=== PATIENT | female | born 1980 | race Caucasian/White ===

== ENCOUNTER 2019-05-25 22:02 | Inpatient (IN) | payer MEDICAID ==
[~2019-05-25] VITALS: Ht 144.8 cm; Wt 85.0 kg
[~2019-05-25 22:02] MED LIST: HYDR-3601 PO; IBUP-1545 PO; METF500T3 PO; PERCOCET PO; PREN-93 PO; PREN1TAB62 PO
[2019-05-26] VITALS (33 sets, daily range): BP systolic 71–128; BP diastolic 39–62; PULSE 68–114; RESP 16–25; Ht 144.8 cm; Wt 85.0 kg
[2019-05-26] MEDS ORDERED: ACETAMINOPHEN 325 MG TAB PO STA (02:23)
[2019-05-26] MEDS ORDERED: CEFTRIAXONE 1 GM/50 ML (PMX) 50 ML IVPB STA (02:23)
[2019-05-26] MEDS ORDERED: ONDANSETRON 4 MG INJ IV STA (02:23)
[2019-05-26] MEDS ORDERED: SODIUM CHLORIDE 0.9% 1L BAG IV* STA (02:23)
[2019-05-26] MEDS ORDERED: morphine 4 MG/ML VIAL IV STA (02:23)
--- NOTE | 2019-05-26 02:50 | ERD ---
ER Documentation Chief Complaint Chief Complaint ABD PAIN XLAST NIGHT; NO OTHER S/S HPI 39-year-old female presenting with generalized abdominal pain. The pain started in her epigastrium yesterday and is now radiating down into her pelvis and to bilateral upper and lower back. Pain is aching, cramping, constant, 9 out of 10, worsened by movement. She has associated fever, chills, and dysuria. No nausea, vomiting, diarrhea, constipation. No abnormal vaginal discharge. Currently on her menstrual period. ROS All systems reviewed and are negative except as per history of present illness. Medications Home Meds Reported Medications Ibuprofen* (Ibuprofen*) 800 Mg Tab, 800 MG PO Q6H PRN for PAIN, TAB 05/26/19 Vit No.124/Iron/FA ( Vitamin Tablet) 1 Each Tablet, 1 EACH PO DAILY, TAB 05/26/19 Discontinued Reported Medications Vit-Iron Fumarate-FA ( Vitamin Tablet) 1 Each Tablet, 1 TAB PO DAILY, TAB 06/15/15 Discontinued Scripts Oxycodone Hcl/Acetaminophen (Percocet) 1 Tab Tab, 2 TAB PO Q4H PRN for PAIN LEVEL 6-10, #30 TAB 0 Refills Prov:JUANCARLOS WALKER MD 06/17/15 Metformin* (Glucophage* XR) 500 Mg Tabsr, 500 MG PO BID, #120 6 Refills Prov:JUANCARLOS WALKER MD 06/17/15 Allergies Allergies: Coded Allergies: No Known Allergy (Unverified , 05/26/19) PMhx/Soc History of Surgery: Yes () Anesthesia Reaction: No Hx Miscellaneous Medical Probl: Yes (DIABETES) Hx Alcohol Use: No Hx Substance Use: No Hx Tobacco Use: No FmHx Family History: No diabetes Physical Exam Vitals Vital Signs Date Temp Pulse Resp B/P (MAP) Pulse Ox O2 O2 Flow FiO2 Time Delivery Rate 05/26/19 99.8 91 23 101/60 99 Nasal 2.0 05:39 (74) Cannula 05/26/19 96 25 84/45 (58) 95 Room Air 04:30 05/26/19 114 34 93/32 (52) 86 Room Air 03:30 05/26/19 113 31 105/58 97 Room Air 03:02 (74) 05/26/19 100.5 02:57 05/26/19 100.5 109 30 120/89 100 Room Air 02:30 (99) 05/25/19 99.1 82 19 126/87 99 22:18 (100) Physical Exam Const: No acute distress, nontoxic Head: Atraumatic Eyes: Normal Conjunctiva ENT: Normal External Ears, Nose and Mouth. Neck: Full range of motion. No meningismus. Resp: Clear to auscultation bilaterally Cardio: Tachycardic with regular rhythm, no murmurs Abd: Soft, diffuse tenderness in all 4 quadrants with no rebound or guarding, non distended. Normal bowel sounds Skin: No petechiae or rashes Back: No midline or flank tenderness Ext: No cyanosis, or edema Neur: Awake and alert Psych: Normal Mood and Affect Result Diagram: 05/26/19 0230 05/26/19 0230 Results 24 hrs Laboratory Tests Test 05/26/19 02:30 05/26/19 02:31 05/26/19 04:30 White Blood Count 9.5 10^3/ul Red Blood Count 4.91 10^6/ul Hemoglobin 14.2 g/dl Hematocrit 43.0 % Mean Corpuscular Volume 87.6 fl Mean Corpuscular Hemoglobin 28.9 pg Mean Corpuscular 33.0 g/dl Hemoglobin Concent Red Cell Distribution Width 12.5 % Platelet Count 216 10^3/UL Mean Platelet Volume 10.5 fl Immature Granulocytes % 0.300 % Neutrophils % 87.3 % Lymphocytes % 7.9 % Monocytes % 4.1 % Eosinophils % 0.1 % Basophils % 0.3 % Nucleated Red Blood Cells % 0.0 /100WBC Immature Granulocytes # 0.030 10^3/ul Neutrophils # 8.3 10^3/ul Lymphocytes # 0.8 10^3/ul Monocytes # 0.4 10^3/ul Eosinophils # 0.0 10^3/ul Basophils # 0.0 10^3/ul Nucleated Red Blood Cells # 0.0 10^3/ul Prothrombin Time 14.0 Sec Prothrombin Time Ratio 1.1 INR International 1.07 Normalized Ratio Activated Partial Thromboplast 32.5 Sec Time Urine Color YELLOW Urine Clarity SLIGHTLY CLOUDY Urine pH 5.0 Urine Specific [place] 1.015 Urine Ketones 2+ mg/dL Urine Nitrite NEGATIVE mg/dL Urine Bilirubin NEGATIVE mg/dL Urine Urobilinogen NEGATIVE mg/dL Urine Leukocyte Esterase NEGATIVE [place] Urine Microscopic RBC 2 /HPF Urine Microscopic WBC 5 /HPF Urine Squamous Epithelial Cells FEW /HPF Urine Bacteria FEW /HPF Urine Hemoglobin 3+ mg/dL Urine Glucose NEGATIVE mg/dL Urine Total Protein NEGATIVE mg/dl Urine Test NEGATIVE Sodium Level 136 mmol/L Potassium Level 3.9 mmol/L Chloride Level 100 mmol/L Carbon Dioxide Level 20 mmol/L Anion Gap 16 Blood Urea Nitrogen 17 mg/dl Creatinine 0.83 mg/dl Est Glomerular Filtrat > 60 mL/min Rate mL/min Glucose Level 127 mg/dl Calcium Level 9.1 mg/dl Total Bilirubin 1.4 mg/dl Direct Bilirubin 0.00 mg/dl Indirect Bilirubin 1.4 mg/dl Aspartate Amino Transf (AST/SGOT) 71 IU/L Alanine 37 IU/L Aminotransferase (ALT/SGPT) Alkaline Phosphatase 85 IU/L Total Protein 8.7 g/dl Albumin 4.6 g/dl Globulin 4.10 g/dl Albumin/Globulin Ratio 1.12 Lipase 35 U/L POC Venous Lactate 1.7 mmol/L Lactic Acid Level 1.1 mmol/L Current Medications Medications Dose Sig/Enedina Start Time Status Last (Trade) Ordered Route PRN Stop Time Admin Dose Reason Admin 650 mg ONCE STAT 05/26/19 DC 05/26/19 Acetaminophen PO 02:23 02:57 (Tylenol 05/26/19 02:27 Tab) Morphine 4 mg ONCE STAT 05/26/19 DC 05/26/19 Sulfate IV 02:23 02:57 (morphine) 05/26/19 02:27 Ondansetron 4 mg ONCE STAT 05/26/19 DC 05/26/19 HCl (Zofran IV 02:23 02:57 Inj) 05/26/19 02:27 Sodium 1,370 ml BOLUS OVER 2 05/26/19 DC 05/26/19 Chloride HOURS STAT 02:23 02:56 (NS) IV* 05/26/19 02:27 Ceftriaxone 50 ml @ ONCE STAT 05/26/19 DC 05/26/19 Sodium 100 mls/hr IVPB 02:23 02:58 05/26/19 02:52 100 ml @ ONCE ONCE 05/26/19 Metronidazole 100 mls/hr IVPB 06:30 05/26/19 07:29 Ondansetron 4 mg BRIDGE ORDER 05/26/19 HCl (Zofran PRN IV 06:30 Inj) NAUSEA/VOMITI 05/27/19 06:29 NG 650 mg ER BRIDGE 05/26/19 Acetaminophen PRN PO 06:30 (Tylenol .MILD PAIN 05/27/19 06:29 Tab) 1-3 OR TEMP Piperacillin 100 ml @ Q6 IVPB 05/26/19 DC Sod/ 200 mls/hr 06:30 Tazobactam 05/26/19 06:30 Sod Sodium 1,000 ml @ [id number] IV 05/26/19 Chloride 80 mls/hr 06:26 IV Flush 3 ml PER 05/26/19 (NS 3 ml) PROTOCOL IV 06:30 Ondansetron 4 mg Q6H PRN 05/26/19 HCl (Zofran IV 06:30 Inj) NAUSEA/VOMITI NG 650 mg Q6H PRN 05/26/19 Acetaminophen PO .PAIN 1-3 06:30 (Tylenol OR TEMP Tab) Morphine 2 mg Q4H PRN 05/26/19 Sulfate IV .SEVERE 06:30 (morphine) PAIN 7-10 Docusate 100 mg Q12H PRN 05/26/19 Sodium PO 06:30 (Colace) .CONSTIPATION Bisacodyl 5 mg DAILY PRN 05/26/19 (Dulcolax) PO 06:30 .CONSTIPATION Piperacillin 100 ml @ Q6 IVPB 05/26/19 Sod/ 200 mls/hr 12:00 Tazobactam Sod Procedures/MDM EMERGENT LABS AND DIAGNOSTIC STUDIES: Lab Results above were reviewed and interpreted by me. CBC: no anemia or evidence of infection CMP: Slight bili elevation. No evidence of clinically significant electrolyte abnormality, acidosis, renal failure, hypoglycemia, liver disease Lipase: no evidence of pancreatitis Lactate within normal limits without evidence of sepsis or tissue hypoperfusion UA: no evidence of infection 12-lead EKG was interpreted by Gracie Maldonado MD: Sinus tachycardia with ventricular rate of 107 beats per minute Normal axis Normal intervals No acute ST or T wave changes suggestive of acute ischemia or STEMI. Radiology Results as interpreted by Radiology below were reviewed by Sally Maldonado MD: CT abdomen and pelvis shows evidence of appendicitis without perforation Initial Nursing notes reviewed. Previous Medical Records requested via the Electronic Health Record. EMERGENCY DEPARTMENT COURSE / MEDICAL DECISION MAKING: Patient is presenting with diffuse abdominal pain, mostly in the lower abdomen. She did have associated fever. Sepsis work-up done. No evidence of severe sepsis or septic shock. CT was done showing evidence of acute appendicitis. Patient was treated with broad-spectrum antibiotics and IV fluids. She will be admitted for further management. Accepting Care Team: Current data and ongoing care discussed. Time: Time of admission Primary Provider: Dr. Castaneda Consulting: Dr. Jackson with surgery Outstanding Data: none Departure Diagnosis: Primary Impression: Acute appendicitis Acute appendicitis type: with generalized peritonitis Appendicitis gangrene presence: without gangrene Appendicitis perforation presence: unspecified whether perforation present Appendicitis abscess presence: unspecified whether abscess present Qualified Codes: K35.20 - Acute appendicitis with generalized peritonitis, without abscess Additional Impression: Sepsis Sepsis type: sepsis due to unspecified organism Qualified Codes: A41.9 - Sepsis, unspecified organism Condition: Serious AIDEN MALDONADO MD May 26, 2019 02:50
[2019-05-26] MEDS ORDERED: BISACODYL (EC) 5 MG TAB PO PRN (06:30)
[2019-05-26] MEDS ORDERED: PIPER-TAZO 3.375 GM IV (PMX) 100 ML IVPB SCH (06:30)
[2019-05-26] MEDS ORDERED: DOCUSATE SODIUM 100 MG CAP PO PRN (06:30)
[2019-05-26] MEDS ORDERED: metroNIDAZOLE 500 MG/NS (PMX) 100 ML IVPB ONE (06:30)
[2019-05-26] MEDS ORDERED: ONDANSETRON 4 MG INJ IV PRN ×3 (06:30→17:30)
[2019-05-26] MEDS ORDERED: NACL 0.9% 3 ML SYG IV SCH (06:30)
[2019-05-26] MEDS ORDERED: ACETAMINOPHEN 325 MG TAB PO PRN ×2 (06:30)
[2019-05-26] MEDS: SOD CHLORIDE 0.9% 1,000 ML IV SCH ×2 (06:50→17:24)
--- NOTE | 2019-05-26 07:22 | HP ---
Date/Time of Note Date/Time of Note DATE: 05/26/19 TIME: 07:19 Assessment/Plan VTE Prophylaxis SCD applied (from Nsg): Yes Pharmacological prophylaxis: NA/contraindicated Pharm contraindication: low risk/ambulating Lines/Catheters IV Catheter Type (from Nrsg): Saline Lock Assessment/Plan Hospital Course This is a 39-year-old female being admitted to the [facility] floor for: #1 sepsis: Secondary to acute appendicitis. Lactic acid within normal values. Continue Zosyn. Trend lactic acid levels. Await culture results. #2 acute appendicitis: CT confirming acute appendicitis. Continue Zosyn IV every 6 hours. We will keep the patient n.p.o. except meds. IV fluid hydration with normal saline pain management. Dr. Jackson of general surgery has already been consulted by the ED #3 metabolic acidosis: secondary to sepsis, acute appendicitis. fluids, abx. monitor #4 obesity: We will check hemoglobin C, lipid panel, TSH #5 DVT GI prophylaxis: SCDs, no GI prophylaxis indicated Further treatment strategy will be implemented as per the clinical course Result Diagram: 05/26/19 0230 05/26/19 0230 Results 24hrs Laboratory Tests Test 05/26/19 02:30 05/26/19 02:31 05/26/19 04:30 White Blood Count 9.5 # Red Blood Count 4.91 # Hemoglobin 14.2 # Hematocrit 43.0 Mean Corpuscular Volume 87.6 Mean Corpuscular Hemoglobin 28.9 L Mean Corpuscular 33.0 Hemoglobin Concent Red Cell Distribution Width 12.5 Platelet Count 216 Mean Platelet Volume 10.5 H Immature Granulocytes % 0.300 Neutrophils % 87.3 H Lymphocytes % 7.9 L Monocytes % 4.1 Eosinophils % 0.1 Basophils % 0.3 Nucleated Red Blood Cells % 0.0 Immature Granulocytes # 0.030 Neutrophils # 8.3 H Lymphocytes # 0.8 Monocytes # 0.4 Eosinophils # 0.0 Basophils # 0.0 Nucleated Red Blood Cells # 0.0 Prothrombin Time 14.0 Prothrombin Time Ratio 1.1 INR International 1.07 Normalized Ratio Activated Partial Thromboplast 32.5 Time Urine Color YELLOW Urine Clarity SLIGHTLY CLOUDY A Urine pH 5.0 Urine Specific [place] 1.015 Urine Ketones 2+ H Urine Nitrite NEGATIVE Urine Bilirubin NEGATIVE Urine Urobilinogen NEGATIVE Urine Leukocyte Esterase NEGATIVE Urine Microscopic RBC 2 Urine Microscopic WBC 5 Urine Squamous FEW Epithelial Cells Urine Bacteria FEW A Urine Hemoglobin 3+ H Urine Glucose NEGATIVE Urine Total Protein NEGATIVE Urine Test NEGATIVE Sodium Level 136 Potassium Level 3.9 Chloride Level 100 Carbon Dioxide Level 20 L Anion Gap 16 H Blood Urea Nitrogen 17 Creatinine 0.83 Est Glomerular Filtrat > 60 Rate mL/min Glucose Level 127 Calcium Level 9.1 Total Bilirubin 1.4 H Direct Bilirubin 0.00 Indirect Bilirubin 1.4 H Aspartate Amino 71 H Transf (AST/SGOT) Alanine 37 Aminotransferase (ALT/SGPT) Alkaline Phosphatase 85 Total Protein 8.7 H Albumin 4.6 Globulin 4.10 H Albumin/Globulin Ratio 1.12 Lipase 35 POC Venous Lactate 1.7 Lactic Acid Level 1.1 HPI/ROS Admit Date/Time Admit Date/Time Hx of Present Illness Complaint: Abdominal pain x2 days This is a 39-year-old female with with a history of hyperlipidemia who presents with abdominal pain x2 days. She states that the pain started in her epigastric area and then went down to her lower abdomen. She describes the pain as constant and aching and 9 out of 10. It is worse with movement. She does report fevers and chills. She denies any nausea vomiting or diarrhea. She is currently on her menstrual cycle. Allergies: NKDA Medications: None ROS Const: As per HPI Eyes : No pain discharge or redness or change in visual acuity ENT: No pain, sore throat, congestion, congestion, dysphagia or discharge Respiratory: No shortness of breath, cough, sputum, wheezing, or pleuritic pain Cardiovascular: No chest pain, palpitation, PND, or edema GI : As per HPI Genitourinary: No dysuria, hematuria, flank pain , discharge or CVA tenderness Musculoskeletal: No joint pain, back pain, neck pain, restricted range of motion in neck or joints Skin: No rash, bruising or hives Neuro: No headache, dizziness, syncope, seizure, focal weakness Endocrine: No polyuria, polydipsia, temperature intolerance Psych: No hallucination, depression, anxiety or suicidal ideation PMH/Family/Social Past Medical History Hyperlipidemia Medications Current Medications Metronidazole 100 ml @ 100 mls/hr ONCE ONCE IVPB Last administered on 05/26/19at 06:50; Admin Dose 100 MLS/HR; Start 05/26/19 at 06:30; Stop 05/26/19 at 07:29 Ondansetron HCl (Zofran Inj) 4 mg BRIDGE ORDER PRN IV NAUSEA/VOMITING; Start 05/26/19 at 06:30; Stop 05/27/19 at 06:29 Acetaminophen (Tylenol Tab) 650 mg ER BRIDGE PRN PO .MILD PAIN 1-3 OR TEMP; Start 05/26/19 at 06:30; Stop 05/27/19 at 06:29 Sodium Chloride 1,000 ml @ 80 mls/hr [id number] IV Last administered on 05/26/19at 06:50; Admin Dose 80 MLS/HR; Start 05/26/19 at 06:26 IV Flush (NS 3 ml) 3 ml PER PROTOCOL IV ; Start 05/26/19 at 06:30 Ondansetron HCl (Zofran Inj) 4 mg Q6H PRN IV NAUSEA/VOMITING; Start 05/26/19 at 06:30 Acetaminophen (Tylenol Tab) 650 mg Q6H PRN PO .PAIN 1-3 OR TEMP; Start 05/26/19 at 06:30 Morphine Sulfate (morphine) 2 mg Q4H PRN IV .SEVERE PAIN 7-10; Start 05/26/19 at 06:30 Docusate Sodium (Colace) 100 mg Q12H PRN PO .CONSTIPATION; Start 05/26/19 at 06:30 Bisacodyl (Dulcolax) 5 mg DAILY PRN PO .CONSTIPATION; Start 05/26/19 at 06:30 Piperacillin Sod/ Tazobactam Sod 100 ml @ 200 mls/hr Q6 IVPB ; Start 05/26/19 at 12:00 Coded Allergies: No Known Allergy (Unverified , 05/26/19) Past Surgical History section x1 Family History Significant Family History: no pertinent family hx Social History Alcohol Use: none Smoking Status: Never smoker Drug Use: none Exam/Review of Systems Vital Signs Vitals Vital Signs Date Temp Pulse Resp B/P (MAP) Pulse Ox O2 O2 Flow FiO2 Time Delivery Rate 05/26/19 78 20 99/61 (74) 100 Nasal 2.0 06:30 Cannula 05/26/19 99.8 05:39 Exam Exam General: Patient is currently lying in bed in mild distress from pain HEENT: Atraumatic, normocephalic. The pupils are equal, round and reactive. Extraocular motor are intact Neck: Supple with full range of motion. No rigidity or meningismus Chest: Nontender Lungs: Clear to auscultation bilaterally no crackles rales or wheezing Heart: Normal S1-S2, Regular rhythm and rate. No murmur, S3, or S4 Abdomen: Obese, soft pinpoint tenderness to palpation at the right lower quadrant and referred pain on the left lower quadrant, nondistended , bowel sounds are present. No guarding no rebound tenderness , No masses or organomegaly. No costovertebral temporal angle mass Extremities: Normal to inspection, no edema no cyanosis Neurologic: Normal mental status, speech normal, cranial nerves II through XII are intact, motor and sensory are intact, GEO SANCHEZ May 26, 2019 07:22
[2019-05-26] MEDS: morphine 2 MG INJ IV PRN ×3 (08:29→23:01)
--- NOTE | 2019-05-26 10:03 | PN ---
Date/Time of Note Date/Time of Note DATE: 05/26/19 TIME: 10:03 Assessment/Plan VTE Prophylaxis Pharmacological prophylaxis: NA/contraindicated Pharm contraindication: low risk/ambulating Lines/Catheters IV [facility] Saline Lock Assessment/Plan Hospital Course SUBJECTIVE: Continues to have abdominal pain. OBJECTIVE: Physical Exam General: Obese 39 year-old female lying in bed in no apparent distress. HEENT: Normocephalic, atraumatic. Eyes: Anicteric sclerae, conjunctivae clear. ENT: Nasal septum midline, oral mucosa is dry. Neck: Short and obese. Respiratory: Bilaterally clear breath sounds. No use of accessory muscles of respiration. No adventitious breath sounds. Cardiovascular: S1, S2 heard. Regular rate and rhythm. Abdomen: Soft and nondistended. Tenderness in RLQ and LLQ. Bowel sounds positive in all 4 quadrants. Genitourinary: Deferred. Extremities: No cyanosis, no clubbing, no edema. Peripheral pulses palpable. Neurologic: Cranial nerves II through XII grossly intact. The patient is awake, alert, and oriented. Skin: Normal skin turgor. No skin rashes. Labs & Vitals per chart ASSESSMENT & PLAN 39-year-old female with comorbidities including dyslipidemia and obesity who presented to the emergency room with chief complaint of abdominal pain with CT evidence of acute appendicitis, who was admitted to inpatient setting for further treatment and evaluation. 1. Abdominal pain with CT evidence of acute appendicitis. Continue the patient on empiric antimicrobials. N.p.o. Pain control. General surgery has been consulted. 2. History of dyslipidemia. Obtain a fasting lipid panel. 3. Obesity. BMI more than 40 kg/m. Will advise weight reduction and lifestyle changes. 4. Fluids, electrolytes, and nutrition. N.p.o. IV fluids. 5. DVT prophylaxis. Bilateral SCDs. 6. Plan. Continue n.p.o. Continue pain control. Continue empiric antimicrobials. Await surgical evaluation/intervention. The patient was seen in collaboration with . Result Diagram: 05/26/19 0230 05/26/19 0230 Results 24hrs Laboratory Tests Test 05/26/19 02:30 05/26/19 02:31 05/26/19 04:30 05/26/19 07:05 White Blood Count 9.5 # Red Blood Count 4.91 # Hemoglobin 14.2 # Hematocrit 43.0 Mean Corpuscular 87.6 Volume Mean Corpuscular 28.9 L Hemoglobin Mean Corpuscular 33.0 Hemoglobin Concen t Red Cell 12.5 Distribution Width Platelet Count 216 Mean Platelet 10.5 H Volume Immature 0.300 Granulocytes % Neutrophils % 87.3 H Lymphocytes % 7.9 L Monocytes % 4.1 Eosinophils % 0.1 Basophils % 0.3 Nucleated Red 0.0 Blood Cells % Immature 0.030 Granulocytes # Neutrophils # 8.3 H Lymphocytes # 0.8 Monocytes # 0.4 Eosinophils # 0.0 Basophils # 0.0 Nucleated Red 0.0 Blood Cells # Prothrombin Time 14.0 Prothrombin Time 1.1 Ratio INR International 1.07 Normalized Ratio Activated 32.5 Partial Thrombopl ast Time Urine Color YELLOW Urine Clarity SLIGHTLY CLOUDY A Urine pH 5.0 Urine Specific 1.015 [place] Urine Ketones 2+ H Urine Nitrite NEGATIVE Urine Bilirubin NEGATIVE Urine NEGATIVE Urobilinogen Urine Leukocyte NEGATIVE Esterase Urine Microscopic 2 RBC Urine Microscopic 5 WBC Urine Squamous FEW Epithelial Cells Urine Bacteria FEW A Urine Hemoglobin 3+ H Urine Glucose NEGATIVE Urine Total NEGATIVE Protein Urine NEGATIVE Test Sodium Level 136 Potassium Level 3.9 Chloride Level 100 Carbon Dioxide 20 L Level Anion Gap 16 H Blood Urea 17 Nitrogen Creatinine 0.83 Est Glomerular > 60 Filtrat Rate mL/min Glucose Level 127 Calcium Level 9.1 Total Bilirubin 1.4 H Direct Bilirubin 0.00 Indirect 1.4 H Bilirubin Aspartate Amino 71 H Transf (AST/SGOT) Alanine 37 Aminotransferase (ALT/SGPT) Alkaline 85 Phosphatase Total Protein 8.7 H Albumin 4.6 Globulin 4.10 H Albumin/Globulin 1.12 Ratio Lipase 35 POC Venous 1.7 Lactate Lactic Acid Level 1.1 1.1 Exam/Review of Systems Exam Vitals Vital Signs Date Temp Pulse Resp B/P (MAP) Pulse Ox O2 O2 Flow FiO2 Time Delivery Rate 05/26/19 98.1 72 19 128/58 98 08:50 (81) 05/26/19 Nasal 07:35 Cannula 05/26/19 2.0 06:30 Results Results 24hrs Laboratory Tests Test 05/26/19 02:30 05/26/19 02:31 05/26/19 04:30 05/26/19 07:05 White Blood Count 9.5 # Red Blood Count 4.91 # Hemoglobin 14.2 # Hematocrit 43.0 Mean Corpuscular 87.6 Volume Mean Corpuscular 28.9 L Hemoglobin Mean Corpuscular 33.0 Hemoglobin Concen t Red Cell 12.5 Distribution Width Platelet Count 216 Mean Platelet 10.5 H Volume Immature 0.300 Granulocytes % Neutrophils % 87.3 H Lymphocytes % 7.9 L Monocytes % 4.1 Eosinophils % 0.1 Basophils % 0.3 Nucleated Red 0.0 Blood Cells % Immature 0.030 Granulocytes # Neutrophils # 8.3 H Lymphocytes # 0.8 Monocytes # 0.4 Eosinophils # 0.0 Basophils # 0.0 Nucleated Red 0.0 Blood Cells # Prothrombin Time 14.0 Prothrombin Time 1.1 Ratio INR International 1.07 Normalized Ratio Activated 32.5 Partial Thrombopl ast Time Urine Color YELLOW Urine Clarity SLIGHTLY CLOUDY A Urine pH 5.0 Urine Specific 1.015 [place] Urine Ketones 2+ H Urine Nitrite NEGATIVE Urine Bilirubin NEGATIVE Urine NEGATIVE Urobilinogen Urine Leukocyte NEGATIVE Esterase Urine Microscopic 2 RBC Urine Microscopic 5 WBC Urine Squamous FEW Epithelial Cells Urine Bacteria FEW A Urine Hemoglobin 3+ H Urine Glucose NEGATIVE Urine Total NEGATIVE Protein Urine NEGATIVE Test Sodium Level 136 Potassium Level 3.9 Chloride Level 100 Carbon Dioxide 20 L Level Anion Gap 16 H Blood Urea 17 Nitrogen Creatinine 0.83 Est Glomerular > 60 Filtrat Rate mL/min Glucose Level 127 Calcium Level 9.1 Total Bilirubin 1.4 H Direct Bilirubin 0.00 Indirect 1.4 H Bilirubin Aspartate Amino 71 H Transf (AST/SGOT) Alanine 37 Aminotransferase (ALT/SGPT) Alkaline 85 Phosphatase Total Protein 8.7 H Albumin 4.6 Globulin 4.10 H Albumin/Globulin 1.12 Ratio Lipase 35 POC Venous 1.7 Lactate Lactic Acid Level 1.1 1.1 Medications Medication Current Medications Sodium Chloride 1,000 ml @ 80 mls/hr [id number] IV Last administered on 05/26/19at 06:50; Admin Dose 80 MLS/HR; Start 05/26/19 at 06:26 IV Flush (NS 3 ml) 3 ml PER PROTOCOL IV ; Start 05/26/19 at 06:30 Ondansetron HCl (Zofran Inj) 4 mg Q6H PRN IV NAUSEA/VOMITING; Start 05/26/19 at 06:30 Acetaminophen (Tylenol Tab) 650 mg Q6H PRN PO .PAIN 1-3 OR TEMP; Start 05/26/19 at 06:30 Morphine Sulfate (morphine) 2 mg Q4H PRN IV .SEVERE PAIN 7-10 Last administered on 05/26/19at 08:29; Admin Dose 2 MG; Start 05/26/19 at 06:30 Docusate Sodium (Colace) 100 mg Q12H PRN PO .CONSTIPATION; Start 05/26/19 at 06:30 Bisacodyl (Dulcolax) 5 mg DAILY PRN PO .CONSTIPATION; Start 05/26/19 at 06:30 Piperacillin Sod/ Tazobactam Sod 100 ml @ 200 mls/hr Q6 IVPB ; Start 05/26/19 at 12:00 CANDACE KIMBALL NP May 26, 2019 10:03
[2019-05-26] MEDS: PIPER-TAZO 3.375 GM IV (PMX) 100 ML IVPB SCH ×3 (12:01→23:35)
--- NOTE | 2019-05-26 13:41 | CONS ---
Assessment/Plan Assessment/Plan Hospital Course (Demo Recall) 1. Acute appendicitis w appendicolith: -npo -abx -OR 2. Abd pain -pain mgt 3. Fatty liver w mild ast elevation -wt loss -diet/exercise 4. Mild hyperbilirubinemia -trend 5. MO: bmi 41 -diet and exercise optimization -encourage weight loss 6. Dyslipidemia -wt loss -med mgt Thank you. Patient seen and examined in collaboration with Dr. Jeff Jackson. Consultation Date/Type/Reason Admit Date/Time Date of Consultation: May 26, 2019 Type of Consult surgical Reason for Consultation appy Requesting Provider: GEO SANCHEZ Date/Time of Note DATE: 05/26/19 TIME: 13:26 Hx of Present Illness Becca Spencer is a 39 YO woman who presented with complaints of abdominal pain. Abdominal pain persistent x2 days. She states that the pain started in her epigastric area and then went down to her lower abdomen. She describes the pain as constant and aching. Associated symptoms include subjective fevers and chills. She denies any nausea vomiting or diarrhea. Ct imaging shows appendiceal tip dilated to 13 mm diameter, trace associated gas within the lumen of the appendix and small appendicolith. Lab findings unremarkable. Gen surgery was asked to evaluate. 12 point ros was performed and is negative except as stated in hpi. Past Medical History hyperlipidemia Morbid obesity Home Meds Reported Medications Ibuprofen* (Ibuprofen*) 800 Mg Tab, 800 MG PO Q6H PRN for PAIN, TAB 05/26/19 Vit No.124/Iron/FA ( Vitamin Tablet) 1 Each Tablet, 1 EACH PO DAILY, TAB 05/26/19 Discontinued Reported Medications Vit-Iron Fumarate-FA ( Vitamin Tablet) 1 Each Tablet, 1 TAB PO DAILY, TAB 06/15/15 Discontinued Scripts Oxycodone Hcl/Acetaminophen (Percocet) 1 Tab Tab, 2 TAB PO Q4H PRN for PAIN LEVEL 6-10, #30 TAB 0 Refills Prov:JUANCARLOS WALKER MD 06/17/15 Metformin* (Glucophage* XR) 500 Mg Tabsr, 500 MG PO BID, #120 6 Refills Prov:JUANCARLOS WALKER MD 06/17/15 Medications Current Medications Sodium Chloride 1,000 ml @ 80 mls/hr [id number] IV Last administered on 05/26/19at 06:50; Admin Dose 80 MLS/HR; Start 05/26/19 at 06:26 IV Flush (NS 3 ml) 3 ml PER PROTOCOL IV ; Start 05/26/19 at 06:30 Ondansetron HCl (Zofran Inj) 4 mg Q6H PRN IV NAUSEA/VOMITING; Start 05/26/19 at 06:30 Acetaminophen (Tylenol Tab) 650 mg Q6H PRN PO .PAIN 1-3 OR TEMP; Start 05/26/19 at 06:30 Morphine Sulfate (morphine) 2 mg Q4H PRN IV .SEVERE PAIN 7-10 Last administered on 05/26/19at 12:01; Admin Dose 2 MG; Start 05/26/19 at 06:30 Docusate Sodium (Colace) 100 mg Q12H PRN PO .CONSTIPATION; Start 05/26/19 at 06:30 Bisacodyl (Dulcolax) 5 mg DAILY PRN PO .CONSTIPATION; Start 05/26/19 at 06:30 Piperacillin Sod/ Tazobactam Sod 100 ml @ 200 mls/hr Q6 IVPB Last administered on 05/26/19at 12:01; Admin Dose 200 MLS/HR; Start 05/26/19 at 12:00 Allergies: Coded Allergies: No Known Allergy (Unverified , 05/26/19) Past Surgical History c section Family History Significant Family History: no pertinent family hx Social History Alcohol Use: none Smoking Status: Never smoker Drug Use: none Exam/Review of Systems Exam Vitals Vital Signs Date Temp Pulse Resp B/P (MAP) Pulse Ox O2 O2 Flow FiO2 Time Delivery Rate 05/26/19 98.1 72 19 128/58 98 08:50 (81) 05/26/19 Nasal 07:35 Cannula 05/26/19 2.0 06:30 Constitutional: alert, oriented Psych: anxiety (min) Head: normocephalic, atraumatic Eyes: nl conjunctiva, nl lids, nl sclera ENMT: nl external ears & nose, nl lips & teeth, mucosa pink and moist Neck: supple, non-tender; No jvd Respiratory: normal air movement, congested cough Cardiovascular: regular rate and rhythm, nl pulses Gastrointestinal: soft, ascites, distended (MOD), tender (BUQ, RLQ) Genitourinary - Female: nl external genitalia Musculoskeletal: nl extremities to inspection, nl gait and stance Extremities: normal pulses Neurological: nl mental status, nl speech, nl strength Skin: rash or lesions Lymph: nl lymph nodes Results Result Diagram: 05/26/19 0230 05/26/19 0230 Results 24hrs Laboratory Tests Test 05/26/19 02:30 05/26/19 02:31 05/26/19 04:30 05/26/19 07:05 White Blood Count 9.5 # Red Blood Count 4.91 # Hemoglobin 14.2 # Hematocrit 43.0 Mean Corpuscular 87.6 Volume Mean Corpuscular 28.9 L Hemoglobin Mean Corpuscular 33.0 Hemoglobin Concen t Red Cell 12.5 Distribution Width Platelet Count 216 Mean Platelet 10.5 H Volume Immature 0.300 Granulocytes % Neutrophils % 87.3 H Lymphocytes % 7.9 L Monocytes % 4.1 Eosinophils % 0.1 Basophils % 0.3 Nucleated Red 0.0 Blood Cells % Immature 0.030 Granulocytes # Neutrophils # 8.3 H Lymphocytes # 0.8 Monocytes # 0.4 Eosinophils # 0.0 Basophils # 0.0 Nucleated Red 0.0 Blood Cells # Prothrombin Time 14.0 Prothrombin Time 1.1 Ratio INR International 1.07 Normalized Ratio Activated 32.5 Partial Thrombopl ast Time Urine Color YELLOW Urine Clarity SLIGHTLY CLOUDY A Urine pH 5.0 Urine Specific 1.015 Spray Urine Ketones 2+ H Urine Nitrite NEGATIVE Urine Bilirubin NEGATIVE Urine NEGATIVE Urobilinogen Urine Leukocyte NEGATIVE Esterase Urine Microscopic 2 RBC Urine Microscopic 5 WBC Urine Squamous FEW Epithelial Cells Urine Bacteria FEW A Urine Hemoglobin 3+ H Urine Glucose NEGATIVE Urine Total NEGATIVE Protein Urine NEGATIVE Test Sodium Level 136 Potassium Level 3.9 Chloride Level 100 Carbon Dioxide 20 L Level Anion Gap 16 H Blood Urea 17 Nitrogen Creatinine 0.83 Est Glomerular > 60 Filtrat Rate mL/min Glucose Level 127 Calcium Level 9.1 Total Bilirubin 1.4 H Direct Bilirubin 0.00 Indirect 1.4 H Bilirubin Aspartate Amino 71 H Transf (AST/SGOT) Alanine 37 Aminotransferase (ALT/SGPT) Alkaline 85 Phosphatase Total Protein 8.7 H Albumin 4.6 Globulin 4.10 H Albumin/Globulin 1.12 Ratio Lipase 35 POC Venous 1.7 Lactate Lactic Acid Level 1.1 1.1 Medications Medication Current Medications Sodium Chloride 1,000 ml @ 80 mls/hr [id number] IV Last administered on 05/26/19at 06:50; Admin Dose 80 MLS/HR; Start 05/26/19 at 06:26 IV Flush (NS 3 ml) 3 ml PER PROTOCOL IV ; Start 05/26/19 at 06:30 Ondansetron HCl (Zofran Inj) 4 mg Q6H PRN IV NAUSEA/VOMITING; Start 05/26/19 at 06:30 Acetaminophen (Tylenol Tab) 650 mg Q6H PRN PO .PAIN 1-3 OR TEMP; Start 05/26/19 at 06:30 Morphine Sulfate (morphine) 2 mg Q4H PRN IV .SEVERE PAIN 7-10 Last administered on 05/26/19at 12:01; Admin Dose 2 MG; Start 05/26/19 at 06:30 Docusate Sodium (Colace) 100 mg Q12H PRN PO .CONSTIPATION; Start 05/26/19 at 06:30 Bisacodyl (Dulcolax) 5 mg DAILY PRN PO .CONSTIPATION; Start 05/26/19 at 06:30 Piperacillin Sod/ Tazobactam Sod 100 ml @ 200 mls/hr Q6 IVPB Last administered on 05/26/19at 12:01; Admin Dose 200 MLS/HR; Start 05/26/19 at 12:00 ANTONIO TRACY NP May 26, 2019 13:37
[2019-05-26] MEDS ORDERED: LIDOCAINE 1% (MPF) 30 ML INJ ONE (15:28)
[2019-05-26] MEDS ORDERED: BUPIVACAINE 0.25%/EPI (SDV) 30 ML INJ ONE (15:28)
--- NOTE | 2019-05-26 15:31 | PREAC ---
Date/Time of Note Date/Time of Note DATE: 05/26/19 TIME: 15:30 Anesthesia Eval and Record Evaluation Time Pre-Procedure Interview DATE: 05/26/19 TIME: 15:30 Age 39 Sex female NPO: 8 hrs Preoperative diagnosis acute appendicitis Planned procedure laparoscopic appendectomy Past Medical History Past Medical History: Includes Cardio: Dyslipidemia GI: Morbid obesity Surgery & Anesthesia Issues No known issue Meds Anticoagulation: No Beta Nathan within 24 hr: No Reason Beta Nathan not given: Pt. not on B-Nathan Reported Medications Ibuprofen* (Ibuprofen*) 800 Mg Tab, 800 MG PO Q6H PRN for PAIN, TAB 05/26/19 Vit No.124/Iron/FA ( Vitamin Tablet) 1 Each Tablet, 1 EACH PO DAILY, TAB 05/26/19 Discontinued Reported Medications Vit-Iron Fumarate-FA ( Vitamin Tablet) 1 Each Tablet, 1 TAB PO DAILY, TAB 06/15/15 Discontinued Scripts Oxycodone Hcl/Acetaminophen (Percocet) 1 Tab Tab, 2 TAB PO Q4H PRN for PAIN LEVE L 6-10, #30 TAB 0 Refills Prov:JUANCARLOS WALKER MD 06/17/15 Metformin* (Glucophage* XR) 500 Mg Tabsr, 500 MG PO BID, #120 6 Refills Prov:JUANCARLOS WALKER MD 06/17/15 Current Medications Sodium Chloride 1,000 ml @ 80 mls/hr [id number] IV Last administered on 05/26/19at 06:50; Admin Dose 80 MLS/HR; Start 05/26/19 at 06:26 IV Flush (NS 3 ml) 3 ml PER PROTOCOL IV ; Start 05/26/19 at 06:30 Ondansetron HCl (Zofran Inj) 4 mg Q6H PRN IV NAUSEA/VOMITING; Start 05/26/19 at 06:30 Acetaminophen (Tylenol Tab) 650 mg Q6H PRN PO .PAIN 1-3 OR TEMP; Start 05/26/19 at 06:30 Morphine Sulfate (morphine) 2 mg Q4H PRN IV .SEVERE PAIN 7-10 Last administered on 05/26/19at 12:01; Admin Dose 2 MG; Start 05/26/19 at 06:30 Docusate Sodium (Colace) 100 mg Q12H PRN PO .CONSTIPATION; Start 05/26/19 at 06:30 Bisacodyl (Dulcolax) 5 mg DAILY PRN PO .CONSTIPATION; Start 05/26/19 at 06:30 Piperacillin Sod/ Tazobactam Sod 100 ml @ 200 mls/hr Q6 IVPB Last administered on 05/26/19at 12:01; Admin Dose 200 MLS/HR; Start 05/26/19 at 12:00 Meds reviewed: Yes Allergies Coded Allergies: No Known Allergy (Unverified , 05/26/19) Allergies Reviewed: Yes Labs/Studies Labs Reviewed: Reviewed by anesthesiologist Result Diagram: 05/26/19 0230 05/26/19 0230 Laboratory Tests 05/26/19 02:30 test: Negative Pre-procedure Exam Last vitals Vital Signs Date Temp Pulse Resp B/P (MAP) Pulse Ox O2 O2 Flow FiO2 Time Delivery Rate 05/26/19 98.1 72 19 128/58 98 08:50 (81) 05/26/19 Nasal 07:35 Cannula 05/26/19 2.0 06:30 Airway: Adequate mouth opening, Adequate thyromental dist Mallampati: Mallampati II Teeth: Normal Lung: Normal Heart: Normal ASA Physical Status ASA physical status: 2 Emergency: E Planned Anesthetic General/MAC: ETT Planned Pain Management Parenteral pain med Pre-operative Attestations Prior to commencing anesthesia and surgery, the patient was re-evaluated, there was verification of: *The patient's identity *The results of appropriate recent lab work and preoperative vital signs *The above evaluation not changing prior to induction *Anesthetic plan, risk benefits, alternative and complications discussed with patient/family; questions answered; patient/family understands, accepts and wishes to proceed. CAMMIE BYRD May 26, 2019 15:31
[2019-05-26] MEDS ORDERED: ROCURONIUM 50 MG INJ ONE ×2 (15:45→15:49)
[2019-05-26] MEDS ORDERED: PROPOFOL 100 ML ONE (15:45)
[2019-05-26] MEDS ORDERED: CEFAZOLIN 1 GM INJ ONE (15:45)
[2019-05-26] MEDS ORDERED: LIDOCAINE 2% (SDV) 5 ML INJ ONE (15:46)
[2019-05-26] MEDS ORDERED: DEXAMETHASONE 4 MG/ML 5 ML INJ ONE (15:50)
[2019-05-26] MEDS ORDERED: ONDANSETRON 4 MG INJ ONE (15:50)
[2019-05-26] MEDS ORDERED: SUGAMMADEX SODIUM 200 MG/2 ML VIAL IV ONE (16:50)
--- NOTE | 2019-05-26 17:05 | OPR ---
Date/Time of Note Date/Time of Note DATE: 05/26/19 TIME: 16:59 Operative Report Free Text/Dictation Preoperative Diagnosis 1. Acute appendicitis probable perforation 2. BMI 41 Postoperative Diagnosis 1. Subacute appendicitis with perforation with peritonitis and pus throughout abdomen 2. Pelvic abscess 3. Right lower quadrant abscess 4. BMI 41 5. Difficult operation Operation Performed 1. Laparoscopic appendectomy and washout 2. Laparoscopic drainage of pelvic abscess 3. Laparoscopic drainage of right lower quadrant abscess 4. Local anesthetic [place], [id number] 5. Laparoscopic guided bilateral transversus abdominis plane block 6. Difficult operation, modifier 22 Surgeon: ELLIE VU MD Tree Thinner: None Anesthesia: general (Plus local plus regional) Anesthesiologist: Katina BURTON Estimated Blood Loss: Less than 20 ml's Specimens: Appendix Tubes/Drains 19 F Maxwell x2 Complications: None Pt Condition Post Procedure: stable Disposition: PACU Indications: Per consult note. Risks include but are not limited to bleeding, infection, abscess, seroma, leak, damage to intestines or any intra-abdominal/intrapelvic structures, hernia formation, chronic pain, need for re-operations or further surgeries, OK, stroke, PE, DVT, pneumonia, organ failures, or even . Patient is advised that most probably she is perforated based on her exam and imaging. Procedure Note: Patient was brought into the operating room, placed supine on the operating table, SCDs were placed, left arm was tucked, all pressure points were well- padded, preoperative antibiotics administered, and after induction of anesthesia, patient was prepped and draped in usual sterile fashion, and timeout was performed. Incision was made supraumbilically and the Veress needle was safely place into the abdomen. After negative sip test, abdomen was insufflated to 15 mmHg with CO2. At this point Veress was removed and the 5 mm blunt trocar was placed into the abdomen. Laparoscopy was performed and no injuries were identified using a 5 mm 30 scope. Under direct visualization another 5 mm port was placed and left lower quadrant and 12 mm port and suprapubic region avoiding the bladder. All incision sites were injected with quarter percent Marcaine with 1% lidocaine with epi. Bilateral transversus abdominis plane block was performed under laparoscopic visualization to aid with pain control intra-and postoperatively. There is pus throughout the abdomen. This is immediately suctioned out and in total I removed about 400 mL's of pus. There was a right lower quadrant abscess and pelvic abscesses well. There was bowel and omentum adhesions to the side. Surgery was difficult because of the adhesions which seemed to be several days long. The bowel was also distended making it difficult to manipulate and find and suction out pus. Both abscesses were drained with suction icer machine operator. Patient was placed in Trendelenburg and right side up. The appendix was found to be inflamed with evidence of perforation. The base was transected using Endo BAHMAN white load automatic 35 mm stapler just on the cecum. The rafiq were fired fully. The mesoappendix was transected with 3 white load rafiq. Hemostasis was fully obtained. The appendix was placed in an Endo Catch bag and removed through the suprapubic port site. 219 [address] Maxwell's were placed through the left lower quadrant and supraumbilical ports. Left lower quadrant port drains the pelvis and right gutter. Supraumbilical port drains subhepatic. Were secured with 2-0 nylon sutures. That fascia was closed with Endo Close and 0 Vicryl in a [id number] manner avoiding the bladder. Ports and CO2 were removed under direct visualization, wounds were fully irrigated, and skin was closed in subcuticular fashion using 4-0 Monocryl. Dermabond was applied. All counts were correct and the end of the operation 2. Patient was extubated and transferred to recovery room in stable condition. ELLIE VU MD May 26, 2019 17:05
--- NOTE | 2019-05-26 17:09 | PAC ---
Date/Time of Note Date/Time of Note DATE: 05/26/19 TIME: 17:08 Post-Anesthesia Notes Post-Anesthesia Note Last documented vital signs Vital Signs Date Temp Pulse Resp B/P (MAP) Pulse Ox O2 O2 Flow FiO2 Time Delivery Rate 05/26/19 99.1 92 19 81/67 98 08:50 05/26/19 Nasal 07:35 Cannula 05/26/19 2.0 06:30 Activity: WNL Respiratory function: WNL Cardiovascular function: WNL Mental status: Baseline Pain reasonably controlled: Yes Hydration appropriate: Yes Nausea/Vomiting absent: Yes CAMMIE BYRD May 26, 2019 17:09
[2019-05-26] MEDS ORDERED: MEPERIDINE 25 MG INJ IV PRN (17:30)
[2019-05-26] MEDS ORDERED: DIPHENHYDRAMINE 50 MG INJ IV PRN (17:30)
[2019-05-26] MEDS ORDERED: ALBUTEROL 0.083% (NEB) 2.5 MG/3 ML AMP HHN PRN (17:30)
[2019-05-26] MEDS ORDERED: hydrALAzine 20 MG INJ IV PRN (17:30)
[2019-05-26] MEDS ORDERED: MIDAZOLAM 1 MG/ML 2 ML INJ IV PRN (17:30)
[2019-05-26] MEDS ORDERED: ALBUMIN HUMAN 5% 250 ML IV PRN (17:30)
[2019-05-26] MEDS ORDERED: EPHEDrine 25 MG/5 ML SYG IV PRN (17:30)
[2019-05-26] MEDS ORDERED: LABETALOL HCL 20MG INJ IV PRN (17:30)
[2019-05-26] MEDS ORDERED: KETOROLAC 30 MG INJ IV PRN (17:30)
[2019-05-26] MEDS ORDERED: HYDROmorphONE 1 MG/5 ML IV SYRINGE IV PRN ×3 (17:30)
[2019-05-26] MEDS ORDERED: METOCLOPRAMIDE 10 MG INJ IV PRN (17:30)
[2019-05-26] MEDS ORDERED: FENTAnyl 50 MCG/ML VIAL IV PRN ×3 (17:30)
[2019-05-27 00:11] VITALS: BP 99/62; PULSE 94; RESP 20
[2019-05-27] MEDS: PIPER-TAZO 3.375 GM IV (PMX) 100 ML IVPB SCH ×3 (05:18→17:48)
[2019-05-27] MEDS: morphine 2 MG INJ IV PRN ×4 (05:18→18:44)
[2019-05-27] MEDS: SOD CHLORIDE 0.9% 1,000 ML IV SCH ×2 (05:19→19:56)
[2019-05-27 07:30] VITALS: BP 108/66; PULSE 80; RESP 20
--- NOTE | 2019-05-27 09:57 | PN ---
Date/Time of Note Date/Time of Note DATE: 05/27/19 TIME: 09:54 Assessment/Plan VTE Prophylaxis Risk score (from Nsg)>0 risk: 4 SCD applied (from Nsg): Yes Pharmacological prophylaxis: NA/contraindicated Pharm contraindication: low risk/ambulating Lines/Catheters IV Catheter Type (from Nrsg): Peripheral IV Assessment/Plan Hospital Course SUBJECTIVE: Continues to have abdominal pain. OBJECTIVE: Physical Exam General: Obese 39 year-old female lying in bed in no apparent distress. HEENT: Normocephalic, atraumatic. Eyes: Anicteric sclerae, conjunctivae clear. ENT: Nasal septum midline, oral mucosa is dry. Neck: Short and obese. Respiratory: Bilaterally clear breath sounds. No use of accessory muscles of respiration. No adventitious breath sounds. Cardiovascular: S1, S2 heard. Regular rate and rhythm. Abdomen: Soft and nondistended. Surgical drain x2. Third laparoscopic incision with surgical glue. Genitourinary: Deferred. Extremities: No cyanosis, no clubbing, no edema. Peripheral pulses palpable. Neurologic: Cranial nerves II through XII grossly intact. The patient is awake, alert, and oriented. Skin: Normal skin turgor. No skin rashes. Labs & Vitals per chart ASSESSMENT & PLAN 39-year-old female with comorbidities including dyslipidemia and obesity who presented to the emergency room with chief complaint of abdominal pain with CT evidence of acute appendicitis, who was admitted to inpatient setting for further treatment and evaluation. 1. Subacute appendicitis with perforation with peritonitis and pus throughout the abdomen; pelvic abscess; right lower quadrant abscess. Status post laparoscopic appendectomy and washout; laparoscopic drainage of pelvic abscess; laparoscopic drainage of right lower quadrant abscess on 05/26/2019. Continue pain control. Initiation and advancement of diet as per general surgery. Continue antimicrobials. Encourage early ambulation and frequent use of incentive spirometry. 2. History of dyslipidemia. Fasting lipid panel satisfactory. 3. Obesity. BMI more than 40 kg/m. Advised weight reduction and lifestyle changes. 4. Prediabetes. Hemoglobin A1c 6.0. Monitor glycemic trends. Advised low carbohydrate diet. Dietary consult. 5. Fluids, electrolytes, and nutrition. N.p.o. IV fluids. 6. DVT prophylaxis. Bilateral SCDs. 7. Plan. Continue pain control. Continue empiric antimicrobials. Encourage frequent ambulation and frequent use of incentive spirometry. The patient was seen in collaboration with . Result Diagram: 05/27/19 0438 05/27/19 0438 Results 24hrs Laboratory Tests Test 05/27/19 04:38 White Blood Count 11.6 #H Red Blood Count 4.05 L Hemoglobin 11.5 L Hematocrit 36.8 L Mean Corpuscular Volume 90.9 Mean Corpuscular Hemoglobin 28.4 L Mean Corpuscular Hemoglobin Concent 31.3 L Red Cell Distribution Width 13.1 Platelet Count 149 # Mean Platelet Volume 10.9 H Immature Granulocytes % 0.300 Neutrophils % Lymphocytes % Monocytes % Eosinophils % Basophils % Nucleated Red Blood Cells % 0.0 Immature Granulocytes # 0.040 H Neutrophils # Lymphocytes # Monocytes # Eosinophils # Basophils # Nucleated Red Blood Cells # Sodium Level 142 Potassium Level 3.7 Chloride Level 113 H Carbon Dioxide Level 21 Anion Gap 8 # Blood Urea Nitrogen 12 Creatinine 0.70 Est Glomerular Filtrat Rate mL/min > 60 Glucose Level 166 Hemoglobin A1c 6.0 H Calcium Level 7.4 L Phosphorus Level 2.4 L Magnesium Level 2.1 Total Bilirubin 0.4 Direct Bilirubin 0.00 Indirect Bilirubin 0.4 Aspartate Amino Transf (AST/SGOT) 51 H Alanine Aminotransferase (ALT/SGPT) 49 Alkaline Phosphatase 59 Total Protein 6.5 # Albumin 3.1 #L Globulin 3.40 H Albumin/Globulin Ratio 0.91 Triglycerides Level 120 Cholesterol Level 123 LDL Cholesterol, Calculated 78 HDL Cholesterol 21 L Cholesterol/HDL Ratio 5.8 Thyroid Stimulating Hormone (TSH) 0.536 Exam/Review of Systems Exam Vitals Vital Signs Date Temp Pulse Resp B/P (MAP) Pulse Ox O2 O2 Flow FiO2 Time Delivery Rate 05/27/19 98.4 80 20 108/66 91 Room Air 07:30 (80) 05/26/19 3.0 21:45 Intake and Output 05/26/19 05/26/19 05/27/19 1515:00 23:00 07:00 IntakeIntake Total 900 ml 1120 ml OutputOutput Total 550 ml 940 ml BalanceBalance 350 ml 180 ml Results Results 24hrs Laboratory Tests Test 05/27/19 04:38 White Blood Count 11.6 #H Red Blood Count 4.05 L Hemoglobin 11.5 L Hematocrit 36.8 L Mean Corpuscular Volume 90.9 Mean Corpuscular Hemoglobin 28.4 L Mean Corpuscular Hemoglobin Concent 31.3 L Red Cell Distribution Width 13.1 Platelet Count 149 # Mean Platelet Volume 10.9 H Immature Granulocytes % 0.300 Neutrophils % Lymphocytes % Monocytes % Eosinophils % Basophils % Nucleated Red Blood Cells % 0.0 Immature Granulocytes # 0.040 H Neutrophils # Lymphocytes # Monocytes # Eosinophils # Basophils # Nucleated Red Blood Cells # Sodium Level 142 Potassium Level 3.7 Chloride Level 113 H Carbon Dioxide Level 21 Anion Gap 8 # Blood Urea Nitrogen 12 Creatinine 0.70 Est Glomerular Filtrat Rate mL/min > 60 Glucose Level 166 Hemoglobin A1c 6.0 H Calcium Level 7.4 L Phosphorus Level 2.4 L Magnesium Level 2.1 Total Bilirubin 0.4 Direct Bilirubin 0.00 Indirect Bilirubin 0.4 Aspartate Amino Transf (AST/SGOT) 51 H Alanine Aminotransferase (ALT/SGPT) 49 Alkaline Phosphatase 59 Total Protein 6.5 # Albumin 3.1 #L Globulin 3.40 H Albumin/Globulin Ratio 0.91 Triglycerides Level 120 Cholesterol Level 123 LDL Cholesterol, Calculated 78 HDL Cholesterol 21 L Cholesterol/HDL Ratio 5.8 Thyroid Stimulating Hormone (TSH) 0.536 Medications Medication Current Medications Sodium Chloride 1,000 ml @ 80 mls/hr [id number] IV Last administered on 05/27/19at 05:19; Admin Dose 80 MLS/HR; Start 05/26/19 at 06:26 IV Flush (NS 3 ml) 3 ml PER PROTOCOL IV ; Start 05/26/19 at 06:30 Ondansetron HCl (Zofran Inj) 4 mg Q6H PRN IV NAUSEA/VOMITING; Start 05/26/19 at 06:30 Acetaminophen (Tylenol Tab) 650 mg Q6H PRN PO .PAIN 1-3 OR TEMP; Start 05/26/19 at 06:30 Morphine Sulfate (morphine) 2 mg Q4H PRN IV .SEVERE PAIN 7-10 Last administered on 05/27/19at 05:18; Admin Dose 2 MG; Start 05/26/19 at 06:30 Docusate Sodium (Colace) 100 mg Q12H PRN PO .CONSTIPATION; Start 05/26/19 at 06:30 Bisacodyl (Dulcolax) 5 mg DAILY PRN PO .CONSTIPATION; Start 05/26/19 at 06:30 Piperacillin Sod/ Tazobactam Sod 100 ml @ 200 mls/hr Q6 IVPB Last administered on 05/27/19at 05:18; Admin Dose 200 MLS/HR; Start 05/26/19 at 12:00 Potassium Phosphate 15 mm/ Sodium Chloride 255 ml @ 63.75 mls/ hr ONCE ONCE IVPB ; Start 05/27/19 at 10:30; Stop 05/27/19 at 14:29 CANDACE KIMBALL NP May 27, 2019 09:57
[2019-05-27] MEDS ORDERED: POTASSIUM PHOSPHATE 15 MM in SOD CHLORIDE 0.9% 250 ML IVPB ONE (10:30)
[2019-05-27 14:00] VITALS: BP 110/72; PULSE 84; RESP 20
[2019-05-27 20:28] VITALS: BP 126/76; PULSE 85; RESP 18
--- NOTE | 2019-05-27 22:33 | PN ---
Date/Time of Note Date/Time of Note DATE: 05/27/19 TIME: 22:28 Assessment/Plan Lines/Catheters IV Catheter Type (from Nrsg): Peripheral IV Assessment/Plan Chief Complaint/Hosp Course 1. Subacute appendicitis w perforation, abscesses, peritonitis s/p lap appy, washout, drainage of abscesses -iv abx -pain control -oob/ambulate -IS -diet as toelrated 2. Fatty liver w mild ast elevation -wt loss encouraged -diet/exercise optimization 3. Mild hyperbilirubinemia probably 2nd acute process -trend 4. MO: bmi 41 -diet and exercise optimization -encourage weight loss 5. Dyslipidemia -wt loss -diet and medication optimization Thank you Subjective 24 Hr Interval Summary Min pain. No f/c. No n/v. No cp/sob. No cough. No sz. No bleeding. No visual or neuro changes. No dysuria. No flatus/bm. Labs noted. Has not ambulated. Exam/Review of Systems Vital Signs Vitals Vital Signs Date Temp Pulse Resp B/P (MAP) Pulse Ox O2 O2 Flow FiO2 Time Delivery Rate 05/27/19 98.0 85 18 126/76 94 20:28 (93) 05/27/19 Room Air 14:00 05/26/19 3.0 21:45 Intake and Output 05/26/19 05/26/19 05/27/19 1515:00 23:00 07:00 IntakeIntake Total 900 ml 1120 ml OutputOutput Total 550 ml 940 ml BalanceBalance 350 ml 180 ml Exam Free Text/Dictation Constitutional: alert, oriented Psych: anxiety (min) Head: normocephalic, atraumatic Eyes: nl conjunctiva, nl lids, nl sclera ENMT: nl external ears & nose, nl lips & teeth, mucosa pink and moist Neck: supple, non-tender; No jvd Respiratory: normal air movement, congested cough Cardiovascular: regular rate and rhythm, nl pulses Gastrointestinal: soft, obese, tender, no rebound/guarding/rigidity, jps serous Genitourinary - Female: nl external genitalia Musculoskeletal: nl extremities to inspection, nl gait and stance Extremities: normal pulses Neurological: nl mental status, nl speech, nl strength Skin: rash or lesions Lymph: nl lymph nodes Results Result Diagram: 05/27/198 05/27/19437 ELLIE VU MD 27, 2019 22:32
[2019-05-28] MEDS: morphine 2 MG INJ IV PRN ×5 (00:28→18:47)
[2019-05-28] MEDS: PIPER-TAZO 3.375 GM IV (PMX) 100 ML IVPB SCH ×4 (00:28→18:47)
[2019-05-28] MEDS: SOD CHLORIDE 0.9% 1,000 ML IV SCH ×2 (00:28→18:47)
[2019-05-28 02:46] VITALS: BP 108/73; PULSE 80; RESP 19
[2019-05-28 07:51] VITALS: BP 115/79; PULSE 76; RESP 18
--- NOTE | 2019-05-28 08:26 | PN ---
Date/Time of Note Date/Time of Note DATE: 05/28/19 TIME: 08:25 Assessment/Plan VTE Prophylaxis Risk score (from Nsg)>0 risk: 4 SCD applied (from Nsg): Yes Pharmacological prophylaxis: NA/contraindicated Pharm contraindication: low risk/ambulating Lines/Catheters IV Catheter Type (from Nrsg): Peripheral IV Assessment/Plan Hospital Course SUBJECTIVE: Continues to have abdominal pain. Started passing gas and had a bowel movement. OBJECTIVE: Physical Exam General: Obese 39 year-old female lying in bed in no apparent distress. HEENT: Normocephalic, atraumatic. Eyes: Anicteric sclerae, conjunctivae clear. ENT: Nasal septum midline, oral mucosa is dry. Neck: Short and obese. Respiratory: Bilaterally clear breath sounds. No use of accessory muscles of respiration. No adventitious breath sounds. Cardiovascular: S1, S2 heard. Regular rate and rhythm. Abdomen: Soft and nondistended. Surgical drain x2. Third laparoscopic incision with surgical glue. Genitourinary: Deferred. Extremities: No cyanosis, no clubbing, no edema. Peripheral pulses palpable. Neurologic: Cranial nerves II through XII grossly intact. The patient is awake, alert, and oriented. Skin: Normal skin turgor. No skin rashes. Labs & Vitals per chart ASSESSMENT & PLAN 39-year-old female with comorbidities including dyslipidemia and obesity who presented to the emergency room with chief complaint of abdominal pain with CT evidence of acute appendicitis, who was admitted to inpatient setting for further treatment and evaluation. 1. Subacute appendicitis with perforation with peritonitis and pus throughout the abdomen; pelvic abscess; right lower quadrant abscess. Status post laparoscopic appendectomy and washout; laparoscopic drainage of pelvic abscess; laparoscopic drainage of right lower quadrant abscess on 05/26/2019. Continue pain control. Initiation and advancement of diet as per general surgery. Continue antimicrobials. Encourage early ambulation and frequent use of incentive spirometry. 2. History of dyslipidemia. Fasting lipid panel satisfactory. 3. Obesity. BMI more than 40 kg/m. Advised weight reduction and lifestyle changes. 4. Prediabetes. Hemoglobin A1c 6.0. Monitor glycemic trends. Advised low carbohydrate diet. Dietary consult. 5. Fluids, electrolytes, and nutrition. N.p.o. IV fluids. 6. DVT prophylaxis. Bilateral SCDs. 7. Plan. Continue pain control. Continue empiric antimicrobials. Encourage frequent ambulation and frequent use of incentive spirometry. Start clear liquids as per surgical recommendations. The patient was seen in collaboration with . Result Diagram: 05/28/199 05/28/199 Results 24hrs Laboratory Tests Test 05/28/19 04:29 White Blood Count 13.5 H Red Blood Count 3.69 L Hemoglobin 10.7 L Hematocrit 33.1 L Mean Corpuscular Volume 89.7 Mean Corpuscular Hemoglobin 29.0 Mean Corpuscular Hemoglobin Concent 32.3 Red Cell Distribution Width 13.2 Platelet Count 178 Mean Platelet Volume 11.0 H Immature Granulocytes % 0.800 H Neutrophils % Segmented Neutrophils % (Manual) 75 Band Neutrophils % (Manual) 15 H Lymphocytes % Lymphocytes % (Manual) 9 L Monocytes % Monocytes % (Manual) 1 Eosinophils % Basophils % Nucleated Red Blood Cells % 0.0 Immature Granulocytes # 0.110 H Neutrophils # Neutrophils # (Manual) 10.4 H Band Neutrophils # 2.0 H Lymphocytes (Manual) 1.2 Lymphocytes # Monocytes # Monocytes # (Manual) 0.1 L Eosinophils # Basophils # Nucleated Red Blood Cells # Platelet Estimate NORMAL Polychromasia 1+ Poikilocytosis 1+ Sodium Level 146 H Potassium Level 3.4 L Chloride Level 116 H Carbon Dioxide Level 23 Anion Gap 7 Blood Urea Nitrogen 16 Creatinine 0.67 Est Glomerular Filtrat Rate mL/min > 60 Glucose Level 131 Calcium Level 8.0 L Phosphorus Level 2.1 L Magnesium Level 2.4 Exam/Review of Systems Exam Vitals Vital Signs Date Temp Pulse Resp B/P (MAP) Pulse Ox O2 O2 Flow FiO2 Time Delivery Rate 05/28/19 98.8 76 18 115/79 95 07:51 (91) 05/27/19 Room Air 14:00 05/26/19 3.0 21:45 Intake and Output 05/27/19 05/27/19 05/28/19 1515:00 23:00 07:00 IntakeIntake Total 100 ml 960 ml 790 ml OutputOutput Total 80 ml 520 ml BalanceBalance 100 ml 880 ml 270 ml Results Results 24hrs Laboratory Tests Test 05/28/19 04:29 White Blood Count 13.5 H Red Blood Count 3.69 L Hemoglobin 10.7 L Hematocrit 33.1 L Mean Corpuscular Volume 89.7 Mean Corpuscular Hemoglobin 29.0 Mean Corpuscular Hemoglobin Concent 32.3 Red Cell Distribution Width 13.2 Platelet Count 178 Mean Platelet Volume 11.0 H Immature Granulocytes % 0.800 H Neutrophils % Segmented Neutrophils % (Manual) 75 Band Neutrophils % (Manual) 15 H Lymphocytes % Lymphocytes % (Manual) 9 L Monocytes % Monocytes % (Manual) 1 Eosinophils % Basophils % Nucleated Red Blood Cells % 0.0 Immature Granulocytes # 0.110 H Neutrophils # Neutrophils # (Manual) 10.4 H Band Neutrophils # 2.0 H Lymphocytes (Manual) 1.2 Lymphocytes # Monocytes # Monocytes # (Manual) 0.1 L Eosinophils # Basophils # Nucleated Red Blood Cells # Platelet Estimate NORMAL Polychromasia 1+ Poikilocytosis 1+ Sodium Level 146 H Potassium Level 3.4 L Chloride Level 116 H Carbon Dioxide Level 23 Anion Gap 7 Blood Urea Nitrogen 16 Creatinine 0.67 Est Glomerular Filtrat Rate mL/min > 60 Glucose Level 131 Calcium Level 8.0 L Phosphorus Level 2.1 L Magnesium Level 2.4 Medications Medication Current Medications Sodium Chloride 1,000 ml @ 80 mls/hr [id number] IV Last administered on 05/28/19at 00:28; Admin Dose 80 MLS/HR; Start 05/26/19 at 06:26 IV Flush (NS 3 ml) 3 ml PER PROTOCOL IV Last administered on 05/28/19at 05:32; Admin Dose 3 ML; Start 05/26/19 at 06:30 Ondansetron HCl (Zofran Inj) 4 mg Q6H PRN IV NAUSEA/VOMITING; Start 05/26/19 at 06:30 Acetaminophen (Tylenol Tab) 650 mg Q6H PRN PO .PAIN 1-3 OR TEMP; Start 05/26/19 at 06:30 Morphine Sulfate (morphine) 2 mg Q4H PRN IV .SEVERE PAIN 7-10 Last administered on 05/28/19at 05:33; Admin Dose 2 MG; Start 05/26/19 at 06:30 Docusate Sodium (Colace) 100 mg Q12H PRN PO .CONSTIPATION; Start 05/26/19 at 06:30 Bisacodyl (Dulcolax) 5 mg DAILY PRN PO .CONSTIPATION; Start 05/26/19 at 06:30 Piperacillin Sod/ Tazobactam Sod 100 ml @ 200 mls/hr Q6 IVPB Last administered on 7/28/19at 05:32; Admin Dose 200 MLS/HR; Start 05/26/19 at 12:00 Potassium Phosphate 15 mm/ Sodium Chloride 255 ml @ 63.75 mls/ hr ONCE ONCE IVPB ; Start 05/28/19 at 08:30; Stop 05/28/19 at 12:29; Status UNV CANDACE KIMBALL NP May 28, 2019 08:26
--- NOTE | 2019-05-28 09:37 | PN ---
Date/Time of Note Date/Time of Note DATE: 05/28/19 TIME: 09:36 Assessment/Plan Lines/Catheters IV Catheter Type (from Nrsg): Peripheral IV Assessment/Plan Chief Complaint/Hosp Course 1. Subacute appendicitis w perforation, abscesses, peritonitis s/p lap appy, washout, drainage of abscesses. WBC increasing slowly -iv abx -pain control -oob/ambulate -IS -diet as toelrated -May need to repeat scan if leukocytosis continues to increase 2. Fatty liver w mild AST elevation -wt loss encouraged -diet/exercise optimization 3. Mild hyperbilirubinemia probably 2nd acute process -trend 4. MO: bmi 41 -diet and exercise optimization -encourage weight loss 5. Dyslipidemia -wt loss -diet and medication optimization Thank you Subjective 24 Hr Interval Summary Min pain 02/08. No f/c. No n/v. No cp/sob. No cough. No sz. No bleeding. No visual or neuro changes. No dysuria. Flatus and BM. Labs noted. Started ambulating. Exam/Review of Systems Vital Signs Vitals Vital Signs Date Temp Pulse Resp B/P (MAP) Pulse Ox O2 O2 Flow FiO2 Time Delivery Rate 05/28/19 98.8 76 18 115/79 95 07:51 (91) 05/27/19 Room Air 14:00 05/26/19 3.0 21:45 Intake and Output 05/27/19 05/27/19 05/28/19 1515:00 23:00 07:00 IntakeIntake Total 100 ml 960 ml 790 ml OutputOutput Total 80 ml 520 ml BalanceBalance 100 ml 880 ml 270 ml Exam Free Text/Dictation Constitutional: alert, oriented Psych: anxiety (min) Head: normocephalic, atraumatic Eyes: nl conjunctiva, nl lids, nl sclera ENMT: nl external ears & nose, nl lips & teeth, mucosa pink and moist Neck: supple, non-tender; No jvd Respiratory: normal air movement, congested cough Cardiovascular: regular rate and rhythm, nl pulses Gastrointestinal: soft, obese, tender, no rebound/guarding/rigidity, jps serous Genitourinary - Female: nl external genitalia Musculoskeletal: nl extremities to inspection, nl gait and stance Extremities: normal pulses Neurological: nl mental status, nl speech, nl strength Skin: rash or lesions Lymph: nl lymph nodes Results Result Diagram: 05/28/19 0429 05/28/19 0429 ELLIE VU MD May 28, 2019 09:37
[2019-05-28] MEDS ORDERED: POTASSIUM PHOSPHATE 15 MM in SOD CHLORIDE 0.9% 250 ML IVPB ONE (10:00)
[2019-05-28 14:00] VITALS: BP 120/80; PULSE 80; RESP 19
[2019-05-28 20:04] VITALS: BP 127/75; PULSE 84; RESP 18
[2019-05-29] MEDS: PIPER-TAZO 3.375 GM IV (PMX) 100 ML IVPB SCH ×4 (00:24→17:18)
[2019-05-29] MEDS: morphine 2 MG INJ IV PRN ×2 (00:27→05:15)
[2019-05-29 02:28] VITALS: BP 122/73; PULSE 75; RESP 18
[2019-05-29 07:22] VITALS: BP 121/68; PULSE 72; RESP 19
[2019-05-29] MEDS: SOD CHLORIDE 0.9% 1,000 ML IV SCH (09:26)
[2019-05-29] MEDS ORDERED: POTASSIUM CHLORIDE 100 ML IVPB SCH (09:30)
[2019-05-29] MEDS: HYDROCODONE/APAP (5/325) TAB PO PRN ×4 (09:34→21:01)
[2019-05-29] MEDS ORDERED: POTASSIUM CHLORIDE (SR) 20 MEQ TAB PO STA (13:09)
--- NOTE | 2019-05-29 13:53 | PN ---
Date/Time of Note Date/Time of Note DATE: 05/29/19 TIME: 13:48 Assessment/Plan VTE Prophylaxis Risk score (from Ns)>0 risk: 3 SCD applied (from Ns): Yes Pharmacological prophylaxis: LMWH Lines/Catheters IV Catheter Type (from [facility]): Saline Lock Assessment/Plan Hospital Course Assessment and plan #Subacute appendicitis with perforation/peritonitis/pelvic abscess and pus throughout the abdomen Patient status post laparoscopic appendectomy and washout. Continue with RAHEEM drainage. Continue antibiotics. Follow-up on cultures. Analgesics as needed. #History of hyperlipidemia. Stable at present. #Obesity Weight reduction was advised #Prediabetes A1c 6.0 Monitor glucose level #Hypokalemia Replete and monitor trend Disposition and plan. Continue with analgesics. Continue antibiotics. Follow-up on surgeon recommendations. Monitor in-house. Discussed POC with Dr. Hinojosa Result Diagram: 05/29/197 05/29/19416 Results 24hrs Laboratory Tests Test 05/29/19 04:17 White Blood Count 9.5 # Red Blood Count 3.97 L Hemoglobin 11.4 L Hematocrit 35.1 L Mean Corpuscular Volume 88.4 Mean Corpuscular Hemoglobin 28.7 L Mean Corpuscular Hemoglobin Concent 32.5 Red Cell Distribution Width 13.2 Platelet Count 201 Mean Platelet Volume 10.8 H Immature Granulocytes % 0.900 H Neutrophils % 73.5 Lymphocytes % 19.4 Monocytes % 5.5 Eosinophils % 0.4 Basophils % 0.3 Nucleated Red Blood Cells % 0.0 Immature Granulocytes # 0.090 H Neutrophils # 7.0 Lymphocytes # 1.8 Monocytes # 0.5 Eosinophils # 0.0 Basophils # 0.0 Nucleated Red Blood Cells # 0.0 Sodium Level 141 Potassium Level 3.0 L Chloride Level 110 Carbon Dioxide Level 23 Anion Gap 8 Blood Urea Nitrogen 10 Creatinine 0.62 Est Glomerular Filtrat Rate mL/min > 60 Glucose Level 106 Calcium Level 7.9 L Phosphorus Level 2.8 Magnesium Level 1.7 Subjective 24 Hr Interval Summary Free Text/Dictation reports abdominal pain with moving. no nausea/vomiting reported Exam/Review of Systems Exam Vitals Vital Signs Date Temp Pulse Resp B/P (MAP) Pulse Ox O2 O2 Flow FiO2 Time Delivery Rate 05/29/19 98.1 72 19 121/68 98 07:22 (85) 05/27/19 Room Air 14:00 05/26/19 3.0 21:45 Intake and Output 05/28/19 05/28/19 05/29/19 1515:00 23:00 07:00 IntakeIntake Total 455 ml 1040 ml 1240 ml OutputOutput Total 70 ml 60 ml BalanceBalance 455 ml 970 ml 1180 ml Constitutional: alert, oriented Psych: nl mood/affect Head: normocephalic Neck: supple, non-tender Respiratory: No wheezing Cardiovascular: other (regular rate ) Gastrointestinal: soft, tender Neurological: HOME VISITOR II-XII intact, nl mental status, nl speech Skin: other (RAHEEM drains abd ) Results Results 24hrs Laboratory Tests Test 05/29/19 04:17 White Blood Count 9.5 # Red Blood Count 3.97 L Hemoglobin 11.4 L Hematocrit 35.1 L Mean Corpuscular Volume 88.4 Mean Corpuscular Hemoglobin 28.7 L Mean Corpuscular Hemoglobin Concent 32.5 Red Cell Distribution Width 13.2 Platelet Count 201 Mean Platelet Volume 10.8 H Immature Granulocytes % 0.900 H Neutrophils % 73.5 Lymphocytes % 19.4 Monocytes % 5.5 Eosinophils % 0.4 Basophils % 0.3 Nucleated Red Blood Cells % 0.0 Immature Granulocytes # 0.090 H Neutrophils # 7.0 Lymphocytes # 1.8 Monocytes # 0.5 Eosinophils # 0.0 Basophils # 0.0 Nucleated Red Blood Cells # 0.0 Sodium Level 141 Potassium Level 3.0 L Chloride Level 110 Carbon Dioxide Level 23 Anion Gap 8 Blood Urea Nitrogen 10 Creatinine 0.62 Est Glomerular Filtrat Rate mL/min > 60 Glucose Level 106 Calcium Level 7.9 L Phosphorus Level 2.8 Magnesium Level 1.7 Medications Medication Current Medications IV Flush (NS 3 ml) 3 ml PER PROTOCOL IV Last administered on 05/28/19at 05:32; Admin Dose 3 ML; Start 05/26/19 at 06:30 Ondansetron HCl (Zofran Inj) 4 mg Q6H PRN IV NAUSEA/VOMITING; Start 05/26/19 at 06:30 Acetaminophen (Tylenol Tab) 650 mg Q6H PRN PO .PAIN 1-3 OR TEMP; Start 05/26/19 at 06:30 Morphine Sulfate (morphine) 2 mg Q4H PRN IV .SEVERE PAIN 7-10 Last administered on 05/29/19at 05:15; Admin Dose 2 MG; Start 05/26/19 at 06:30 Docusate Sodium (Colace) 100 mg Q12H PRN PO .CONSTIPATION; Start 05/26/19 at 06:30 Bisacodyl (Dulcolax) 5 mg DAILY PRN PO .CONSTIPATION; Start 05/26/19 at 06:30 Piperacillin Sod/ Tazobactam Sod 100 ml @ 200 mls/hr Q6 IVPB Last administered on 05/29/19at 12:04; Admin Dose 200 MLS/HR; Start 05/26/19 at 12:00 Acetaminophen/ Hydrocodone Bitart ([place] (5/325)) 1 tab Q4H PRN PO MODERATE PAIN LEVEL 4-6 Last administered on 05/29/19at 13:37; Admin Dose 1 TAB; Start 05/29/19 at 08:00 ROSAS JONES NP May 29, 2019 13:53
[2019-05-29 14:59] VITALS: BP 119/62; RESP 20
[2019-05-29 20:05] VITALS: BP 138/88; PULSE 73; RESP 19
--- NOTE | 2019-05-29 22:20 | PN ---
Date/Time of Note Date/Time of Note DATE: 05/29/19 TIME: 22:17 Assessment/Plan Lines/Catheters IV Catheter Type (from Nrsg): Peripheral IV Assessment/Plan Chief Complaint/Hosp Course 1. Subacute appendicitis w perforation, abscesses, peritonitis s/p lap appy, washout, drainage of abscesses. WBC normalized -iv abx x 5 days -pain control -oob/ambulate -IS -diet as toelrated -dc planning 2. Fatty liver w mild AST elevation -wt loss encouraged -diet/exercise optimization 3. Mild hyperbilirubinemia probably 2nd acute process -trend 4. MO: bmi 41 -diet and exercise optimization -encourage weight loss 5. Dyslipidemia -wt loss -diet and medication optimization Thank you Subjective 24 Hr Interval Summary Min pain with movement. WBC normalized. No f/c. No n/v. No cp/sob. No cough. No sz. No bleeding. No visual or neuro changes. No dysuria. Flatus and BM. Labs noted. Ambulating. Exam/Review of Systems Vital Signs Vitals Vital Signs Date Temp Pulse Resp B/P (MAP) Pulse Ox O2 O2 Flow FiO2 Time Delivery Rate 05/29/19 98.4 73 19 138/88 97 20:05 (105) 05/27/19 Room Air 14:00 05/26/19 3.0 21:45 Intake and Output 05/28/19 05/28/19 05/29/19 1515:00 23:00 07:00 IntakeIntake Total 455 ml 1040 ml 1240 ml OutputOutput Total 70 ml 60 ml BalanceBalance 455 ml 970 ml 1180 ml Exam Free Text/Dictation Constitutional: alert, oriented Psych: anxiety (min) Head: normocephalic, atraumatic Eyes: nl conjunctiva, nl lids, nl sclera ENMT: nl external ears & nose, nl lips & teeth, mucosa pink and moist Neck: supple, non-tender; No jvd Respiratory: normal air movement, congested cough Cardiovascular: regular rate and rhythm, nl pulses Gastrointestinal: soft, obese, min tender, no rebound/guarding/rigidity, jps serous Genitourinary - Female: nl external genitalia Musculoskeletal: nl extremities to inspection, nl gait and stance Extremities: normal pulses Neurological: nl mental status, nl speech, nl strength Skin: rash or lesions Lymph: nl lymph nodes Results Result Diagram: 05/29/19 0417 05/29/19 0417 ELLIE VU MD May 29, 2019 22:20
[2019-05-30] MEDS: PIPER-TAZO 3.375 GM IV (PMX) 100 ML IVPB SCH ×6 (00:37→23:50)
[2019-05-30 02:11] VITALS: BP 110/69; PULSE 70; RESP 18
[2019-05-30] MEDS: HYDROCODONE/APAP (5/325) TAB PO PRN ×5 (05:45→23:55)
[2019-05-30 08:03] VITALS: BP 119/62; PULSE 78; RESP 20
[2019-05-30] MEDS: ENOXAPARIN 40 MG/0.4 ML SYG SC SCH (09:26)
--- NOTE | 2019-05-30 09:46 | PN ---
Date/Time of Note Date/Time of Note DATE: 05/30/19 TIME: 09:41 Assessment/Plan Lines/Catheters IV Catheter Type (from Nrs): Saline Lock Jackson in Place (from Nrs): No Assessment/Plan Chief Complaint/Hosp Course 1. Subacute appendicitis w perforation, abscesses, peritonitis s/p lap appy, washout, drainage of abscesses. WBC normalized -Continue iv abx x 5 days -pain control -oob/ambulate -IS -diet as tolerated -Continue drains> possible DC tomorrow if drain output is improved -dc planning 2. Fatty liver w mild AST elevation -wt loss encouraged -diet/exercise optimization 3. Mild hyperbilirubinemia probably 2nd acute process -trend 4. MO: bmi 41 -diet and exercise optimization -encourage weight loss 5. Dyslipidemia -wt loss -diet and medication optimization Thank you. Patient seen and examined in collaboration with Dr. Jeff Jackson. Subjective 24 Hr Interval Summary Feels well. Tolerating diet. No fevers, chills, sob, congested cough, cp, palpitations, [place], dizziness, nausea, vomiting, diarrhea, dysuria. Exam/Review of Systems Vital Signs Vitals Vital Signs Date Temp Pulse Resp B/P (MAP) Pulse Ox O2 O2 Flow FiO2 Time Delivery Rate 05/30/19 98.1 78 20 119/62 98 08:03 (81) 05/27/19 Room Air 14:00 05/26/19 3.0 21:45 Intake and Output 05/29/19 05/29/19 05/30/19 1515:00 23:00 07:00 IntakeIntake Total 450 ml 300 ml 300 ml OutputOutput Total 50 ml BalanceBalance 450 ml 250 ml 300 ml Exam Free Text/Dictation Constitutional: alert, oriented Psych: anxiety (min) Head: normocephalic, atraumatic Eyes: nl conjunctiva, nl lids, nl sclera ENMT: nl external ears & nose, nl lips & teeth, mucosa pink and moist Neck: supple, non-tender; No jvd Respiratory: normal air movement, congested cough Cardiovascular: regular rate and rhythm, nl pulses Gastrointestinal: soft, obese, min tender, no rebound/guarding/rigidity, jps serous Genitourinary - Female: nl external genitalia Musculoskeletal: nl extremities to inspection, nl gait and stance Extremities: normal pulses Neurological: nl mental status, nl speech, nl strength Skin: rash or lesions Lymph: nl lymph nodes Results Result Diagram: 05/30/19 0430 05/30/19 0429 ANTONIO TRACY NP May 30, 2019 09:46
--- NOTE | 2019-05-30 12:57 | PN ---
Date/Time of Note Date/Time of Note DATE: 05/30/19 TIME: 12:55 Assessment/Plan VTE Prophylaxis Risk score (from Ns)>0 risk: 4 SCD applied (from Ns): Yes Pharmacological prophylaxis: LMWH Lines/Catheters IV Catheter Type (from Nrs): Saline Lock Urinary Cath still in place: No Assessment/Plan Hospital Course Assessment and plan #Subacute appendicitis with perforation/peritonitis/pelvic abscess and pus throughout the abdomen Patient status post laparoscopic appendectomy and washout. Continue with RAHEEM drainage. Continue antibiotics. Analgesics as needed. #History of hyperlipidemia. Stable at present. #Obesity Weight reduction was advised #Prediabetes A1c 6.0 Monitor glucose level #Hypokalemia Replete and monitor trend Disposition and plan. Continue with analgesics. Continue antibiotics. DC planning in progress. If clinically improve anticipate discharge within the next 24 to 48 hours. Monitor in-house. Check a.m. labs. Discussed POC with Dr. Hinojosa Result Diagram: 05/30/19 0430 05/30/19 0429 Results 24hrs Laboratory Tests Test 05/30/19 04:29 05/30/19 04:30 Sodium Level 141 Potassium Level 3.4 L Chloride Level 104 Carbon Dioxide Level 29 Anion Gap 8 Blood Urea Nitrogen 7 Creatinine 0.62 Est Glomerular Filtrat Rate mL/min > 60 Glucose Level 122 Calcium Level 8.0 L Phosphorus Level 4.1 Magnesium Level 1.6 L White Blood Count 9.6 Red Blood Count 4.18 L Hemoglobin 12.1 Hematocrit 37.0 Mean Corpuscular Volume 88.5 Mean Corpuscular Hemoglobin 28.9 L Mean Corpuscular Hemoglobin Concent 32.7 Red Cell Distribution Width 13.0 Platelet Count 209 Mean Platelet Volume 10.7 H Immature Granulocytes % 2.700 H Neutrophils % Segmented Neutrophils % (Manual) 57 Band Neutrophils % (Manual) 5 H Lymphocytes % Lymphocytes % (Manual) 15 Reactive Lymphocytes % (Manual) 9 H Monocytes % Monocytes % (Manual) 6 Eosinophils % Eosinophils % (Manual) 3 Basophils % Basophils % (Manual) 2 Myelocytes % (Manual) 3 H Nucleated Red Blood Cells % 0.0 Immature Granulocytes # 0.260 H Neutrophils # Neutrophils # (Manual) 5.5 Band Neutrophils # 0.4 Lymphocytes (Manual) 1.4 Lymphocytes # Reactive Lymphocytes # 0.8 H Monocytes # Monocytes # (Manual) 0.5 Eosinophils # Basophils # Basophils # (Manual) 0.1 H Myelocytes # 0.2 H Nucleated Red Blood Cells # Platelet Estimate NORMAL Poikilocytosis 1+ Anisocytosis 1+ Subjective 24 Hr Interval Summary Free Text/Dictation Patient with less abdominal pain. Exam/Review of Systems Exam Vitals Vital Signs Date Temp Pulse Resp B/P (MAP) Pulse Ox O2 O2 Flow FiO2 Time Delivery Rate 05/30/19 98.1 78 20 119/62 98 08:03 (81) 05/27/19 Room Air 14:00 05/26/19 3.0 21:45 Intake and Output 05/29/19 05/29/19 05/30/19 1515:00 23:00 07:00 IntakeIntake Total 450 ml 300 ml 300 ml OutputOutput Total 50 ml 95 ml BalanceBalance 450 ml 250 ml 205 ml Exam Constitutional: alert, oriented Psych: nl mood/affect Head: normocephalic Neck: supple, non-tender Respiratory: No wheezing Cardiovascular: other (regular rate ) Gastrointestinal: soft, tender Neurological: OVEN BUILDER II-XII intact, nl mental status, nl speech Skin: other (RAHEEM drains abd ) Results Results 24hrs Laboratory Tests Test 05/30/19 04:29 05/30/19 04:30 Sodium Level 141 Potassium Level 3.4 L Chloride Level 104 Carbon Dioxide Level 29 Anion Gap 8 Blood Urea Nitrogen 7 Creatinine 0.62 Est Glomerular Filtrat Rate mL/min > 60 Glucose Level 122 Calcium Level 8.0 L Phosphorus Level 4.1 Magnesium Level 1.6 L White Blood Count 9.6 Red Blood Count 4.18 L Hemoglobin 12.1 Hematocrit 37.0 Mean Corpuscular Volume 88.5 Mean Corpuscular Hemoglobin 28.9 L Mean Corpuscular Hemoglobin Concent 32.7 Red Cell Distribution Width 13.0 Platelet Count 209 Mean Platelet Volume 10.7 H Immature Granulocytes % 2.700 H Neutrophils % Segmented Neutrophils % (Manual) 57 Band Neutrophils % (Manual) 5 H Lymphocytes % Lymphocytes % (Manual) 15 Reactive Lymphocytes % (Manual) 9 H Monocytes % Monocytes % (Manual) 6 Eosinophils % Eosinophils % (Manual) 3 Basophils % Basophils % (Manual) 2 Myelocytes % (Manual) 3 H Nucleated Red Blood Cells % 0.0 Immature Granulocytes # 0.260 H Neutrophils # Neutrophils # (Manual) 5.5 Band Neutrophils # 0.4 Lymphocytes (Manual) 1.4 Lymphocytes # Reactive Lymphocytes # 0.8 H Monocytes # Monocytes # (Manual) 0.5 Eosinophils # Basophils # Basophils # (Manual) 0.1 H Myelocytes # 0.2 H Nucleated Red Blood Cells # Platelet Estimate NORMAL Poikilocytosis 1+ Anisocytosis 1+ Medications Medication Current Medications IV Flush (NS 3 ml) 3 ml PER PROTOCOL IV Last administered on 05/28/19 05:32; Admin Dose 3 ML; Start 05/26/19 at 06:30 Ondansetron HCl (Zofran Inj) 4 mg Q6H PRN IV NAUSEA/VOMITING; Start 05/26/19 at 06:30 Acetaminophen (Tylenol Tab) 650 mg Q6H PRN PO .PAIN 1-3 OR TEMP; Start 05/26/19 at 06:30 Morphine Sulfate (morphine) 2 mg Q4H PRN IV .SEVERE PAIN 7-10 Last administered on 05/29/19at 05:15; Admin Dose 2 MG; Start 05/26/19 at 06:30 Docusate Sodium (Colace) 100 mg Q12H PRN PO .CONSTIPATION; Start 05/26/19 at 06:30 Bisacodyl (Dulcolax) 5 mg DAILY PRN PO .CONSTIPATION; Start 05/26/19 at 06:30 Piperacillin Sod/ Tazobactam Sod 100 ml @ 200 mls/hr Q6 IVPB Last administered on 05/30/19at 12:20; Admin Dose 200 MLS/HR; Start 05/26/19 at 12:00 Acetaminophen/ Hydrocodone Bitart ([place] (5/325)) 1 tab Q4H PRN PO MODERATE PAIN LEVEL 4-6 Last administered on 05/30/19at 11:36; Admin Dose 1 TAB; Start 05/29/19 at 08:00 Enoxaparin Sodium (Lovenox) 40 mg DAILY SC Last administered on 05/30/19 09:26; Admin Dose 40 MG; Start 05/30/19 at 09:00 ROSAS JONES NP May 30, 2019 12:57
[2019-05-30 15:27] VITALS: BP 121/60; PULSE 68; RESP 18
[2019-05-30 19:18] VITALS: BP 106/71; PULSE 85; RESP 18
[2019-05-30] MEDS ORDERED: MAGNESIUM OXIDE 400 MG TAB PO ONE (19:30)
[2019-05-31 02:18] VITALS: BP 124/60; PULSE 68; RESP 18
[2019-05-31] MEDS: HYDROCODONE/APAP (5/325) TAB PO PRN ×4 (04:58→20:58)
[2019-05-31] MEDS: PIPER-TAZO 3.375 GM IV (PMX) 100 ML IVPB SCH ×3 (05:38→18:13)
[2019-05-31 07:36] VITALS: BP 118/67; PULSE 75; RESP 15
[2019-05-31] MEDS: ENOXAPARIN 40 MG/0.4 ML SYG SC SCH (09:01)
--- NOTE | 2019-05-31 10:10 | PN ---
Date/Time of Note Date/Time of Note DATE: 05/31/19 TIME: 10:07 Assessment/Plan Lines/Catheters IV Catheter Type (from Nrs): Peripheral IV Jackson in Place (from Nrs): No Assessment/Plan Chief Complaint/Hosp Course 1. Subacute appendicitis w perforation, abscesses, peritonitis s/p lap appy, washout, drainage of abscesses. WBC normalized -iv abx x 5 days -pain control -oob/ambulate -IS -diet as tolerated -Continue drains -dc ok from surgical standpoint with for drain care. To follow in office in 1 week. 2. Fatty liver w mild AST elevation -wt loss encouraged -diet/exercise optimization 3. Mild hyperbilirubinemia probably 2nd acute process -trend 4. MO: bmi 41 -diet and exercise optimization -encourage weight loss 5. Dyslipidemia -wt loss -diet and medication optimization Thank you. Patient seen and examined in collaboration with Dr. Jeff Jackson. Subjective 24 Hr Interval Summary Feels well. Tolerating diet. + bowel function. No fevers, chills, sob, congested cough, cp, palpitations, gauthier, dizziness, n/v/d/dysuria. Exam/Review of Systems Vital Signs Vitals Vital Signs Date Temp Pulse Resp B/P (MAP) Pulse Ox O2 O2 Flow FiO2 Time Delivery Rate 05/31/19 98.2 75 15 118/67 100 Room Air 07:36 (84) Intake and Output 05/30/19 05/30/19 05/31/19 1515:00 23:00 07:00 IntakeIntake Total 100 ml 200 ml OutputOutput Total 120 ml 50 ml BalanceBalance -20 ml 150 ml Exam Free Text/Dictation Constitutional: alert, oriented Psych: anxiety (min) Head: normocephalic, atraumatic Eyes: nl conjunctiva, nl lids, nl sclera ENMT: nl external ears & nose, nl lips & teeth, mucosa pink and moist Neck: supple, non-tender; No jvd Respiratory: normal air movement, congested cough Cardiovascular: regular rate and rhythm, nl pulses Gastrointestinal: soft, obese, min tender, no rebound/guarding/rigidity, jps serous Genitourinary - Female: nl external genitalia Musculoskeletal: nl extremities to inspection, nl gait and stance Extremities: normal pulses Neurological: nl mental status, nl speech, nl strength Skin: rash or lesions Lymph: nl lymph nodes Results Result Diagram: 05/31/19 0455 05/31/19 0454 ANTONIO TRACY NP May 31, 2019 10:10
[2019-05-31 14:00] VITALS: BP 125/83; PULSE 86; RESP 16
--- NOTE | 2019-05-31 16:51 | PN ---
Date/Time of Note Date/Time of Note DATE: 05/31/19 TIME: 16:49 Assessment/Plan VTE Prophylaxis Risk score (from Ns)>0 risk: 4 SCD applied (from Nsg): Yes Pharmacological prophylaxis: LMWH Lines/Catheters IV Catheter Type (from Nrsg): Peripheral IV Urinary Cath still in place: No Assessment/Plan Hospital Course Assessment and plan #Subacute appendicitis with perforation/peritonitis/pelvic abscess and pus throughout the abdomen Patient status post laparoscopic appendectomy and washout. Continue with RAHEEM drainage. Continue antibiotics. Analgesics as needed. #History of hyperlipidemia. Stable at present. #Obesity Weight reduction was advised #Prediabetes A1c 6.0 Monitor glucose level #Hypokalemia Replete and monitor trend Disposition and plan. Continue with analgesics. Continue antibiotics. DC planning in progress. Plan for antibiotics for home and home health services for drain care. We will follow-up with rn case manager hospice. Anticipate discharge in the next 24 hours once home health resources set up Discussed POC with Dr. Hinojosa Result Diagram: 05/31/19 0455 05/31/19 0454 Results 24hrs Laboratory Tests Test 05/31/19 04:54 05/31/19 04:55 Sodium Level 139 Potassium Level 4.0 Chloride Level 102 Carbon Dioxide Level 33 H Anion Gap 4 L Blood Urea Nitrogen 6 L Creatinine 0.56 Est Glomerular Filtrat Rate mL/min > 60 Glucose Level 114 Calcium Level 8.3 L Magnesium Level 1.9 White Blood Count 11.0 H Red Blood Count 4.25 Hemoglobin 12.3 Hematocrit 38.1 Mean Corpuscular Volume 89.6 Mean Corpuscular Hemoglobin 28.9 L Mean Corpuscular Hemoglobin Concent 32.3 Red Cell Distribution Width 12.9 Platelet Count 206 Mean Platelet Volume 10.5 H Immature Granulocytes % 2.800 H Neutrophils % Segmented Neutrophils % (Manual) 66 Band Neutrophils % (Manual) 1 Lymphocytes % Lymphocytes % (Manual) 25 Monocytes % Monocytes % (Manual) 2 Eosinophils % Eosinophils % (Manual) 4 Basophils % Metamyelocytes % (manual) 1 H Myelocytes % (Manual) 1 H Nucleated Red Blood Cells % 0.0 Immature Granulocytes # 0.310 H Neutrophils # Neutrophils # (Manual) 7.3 Band Neutrophils # 0.1 Lymphocytes (Manual) 2.7 Lymphocytes # Monocytes # Monocytes # (Manual) 0.2 L Eosinophils # Basophils # Metamyelocytes # 0.1 H Myelocytes # 0.1 H Nucleated Red Blood Cells # Platelet Estimate NORMAL Giant Platelets 1 H Subjective 24 Hr Interval Summary Free Text/Dictation still reports abd pain. seen sitting in chair Exam/Review of Systems Exam Vitals Vital Signs Date Temp Pulse Resp B/P (MAP) Pulse Ox O2 O2 Flow FiO2 Time Delivery Rate 05/31/19 98.7 86 16 125/83 98 Room Air 14:00 (97) Intake and Output 05/30/19 05/30/19 05/31/19 1515:00 23:00 07:00 IntakeIntake Total 100 ml 200 ml OutputOutput Total 120 ml 50 ml BalanceBalance -20 ml 150 ml Exam Constitutional: alert, oriented Psych: nl mood/affect Head: normocephalic Neck: supple, non-tender Respiratory: No wheezing Cardiovascular: other (regular rate ) Gastrointestinal: soft, tender Neurological: S[employer]IOR [employer] ENG[employer]ER II-XII intact, nl mental status, nl speech Skin: other (RAHEEM drains abd ) Results Results 24hrs Laboratory Tests Test 05/31/19 04:54 05/31/19 04:55 Sodium Level 139 Potassium Level 4.0 Chloride Level 102 Carbon Dioxide Level 33 H Anion Gap 4 L Blood Urea Nitrogen 6 L Creatinine 0.56 Est Glomerular Filtrat Rate mL/min > 60 Glucose Level 114 Calcium Level 8.3 L Magnesium Level 1.9 White Blood Count 11.0 H Red Blood Count 4.25 Hemoglobin 12.3 Hematocrit 38.1 Mean Corpuscular Volume 89.6 Mean Corpuscular Hemoglobin 28.9 L Mean Corpuscular Hemoglobin Concent 32.3 Red Cell Distribution Width 12.9 Platelet Count 206 Mean Platelet Volume 10.5 H Immature Granulocytes % 2.800 H Neutrophils % Segmented Neutrophils % (Manual) 66 Band Neutrophils % (Manual) 1 Lymphocytes % Lymphocytes % (Manual) 25 Monocytes % Monocytes % (Manual) 2 Eosinophils % Eosinophils % (Manual) 4 Basophils % Metamyelocytes % (manual) 1 H Myelocytes % (Manual) 1 H Nucleated Red Blood Cells % 0.0 Immature Granulocytes # 0.310 H Neutrophils # Neutrophils # (Manual) 7.3 Band Neutrophils # 0.1 Lymphocytes (Manual) 2.7 Lymphocytes # Monocytes # Monocytes # (Manual) 0.2 L Eosinophils # Basophils # Metamyelocytes # 0.1 H Myelocytes # 0.1 H Nucleated Red Blood Cells # Platelet Estimate NORMAL Giant Platelets 1 H Medications Medication Current Medications IV Flush (NS 3 ml) 3 ml PER PROTOCOL IV Last administered on 05/28/19 05:32; Admin Dose 3 ML; Start 05/26/19 at 06:30 Ondansetron HCl (Zofran Inj) 4 mg Q6H PRN IV NAUSEA/VOMITING; Start 05/26/19 at 06:30 Acetaminophen (Tylenol Tab) 650 mg Q6H PRN PO .PAIN 1-3 OR TEMP; Start 05/26/19 at 06:30 Morphine Sulfate (morphine) 2 mg Q4H PRN IV .SEVERE PAIN 7-10 Last administered on 05/29/19at 05:15; Admin Dose 2 MG; Start 05/26/19 at 06:30 Docusate Sodium (Colace) 100 mg Q12H PRN PO .CONSTIPATION; Start 05/26/19 at 06:30 Bisacodyl (Dulcolax) 5 mg DAILY PRN PO .CONSTIPATION; Start 05/26/19 at 06:30 Piperacillin Sod/ Tazobactam Sod 100 ml @ 200 mls/hr Q6 IVPB Last administered on 05/31/19at 11:47; Admin Dose 200 MLS/HR; Start 05/26/19 at 12:00 Acetaminophen/ Hydrocodone Bitart (Keller (5/325)) 1 tab Q4H PRN PO MODERATE PAIN LEVEL 4-6 Last administered on 05/31/19at 16:13; Admin Dose 1 TAB; Start 05/29/19 at 08:00 Enoxaparin Sodium (Lovenox) 40 mg DAILY SC Last administered on 05/31/19at 09:01 ; Admin Dose 40 MG; Start 05/30/19 at 09:00 ROSAS JONES NP May 31, 2019 16:51
[2019-05-31 19:10] VITALS: BP 123/79; PULSE 84; RESP 18
[2019-06-01] MEDS: PIPER-TAZO 3.375 GM IV (PMX) 100 ML IVPB SCH ×2 (00:42→06:06)
[2019-06-01] MEDS: HYDROCODONE/APAP (5/325) TAB PO PRN ×4 (00:48→17:41)
[2019-06-01 02:05] VITALS: BP 110/68; PULSE 71; RESP 18
[2019-06-01 07:09] VITALS: BP 120/78; PULSE 66; RESP 17
[2019-06-01] MEDS: ENOXAPARIN 40 MG/0.4 ML SYG SC SCH (09:19)
--- NOTE | 2019-06-01 11:09 | PN ---
Date/Time of Note Date/Time of Note DATE: 06/01/19 TIME: 11:06 Assessment/Plan Lines/Catheters IV Catheter Type (from Nrsg): Peripheral IV Jackson in Place (from Nrsg): No Assessment/Plan Chief Complaint/Hosp Course 1. Subacute appendicitis w perforation, abscesses, peritonitis s/p lap appy, washout, drainage of abscesses. WBC normalized -iv abx x 5 days total -pain control -oob/ambulate -IS -diet as tolerated -Continue drains -dc ok from surgical standpoint with HH for drain care. If hh unavailable, nursing to teach drain care. To follow in office in 1 week. 2. Fatty liver w mild AST elevation -wt loss encouraged -diet/exercise optimization 3. Mild hyperbilirubinemia probably 2nd acute process -trend 4. MO: bmi 41 -diet and exercise optimization -encourage weight loss 5. Dyslipidemia -wt loss -diet and medication optimization Thank you. Patient seen and examined in collaboration with Dr. Jeff Jackson. Subjective 24 Hr Interval Summary Feels well. continues to have mod output from jps. No fevers, chills, sob, con gested cough, cp, palpitations, gauthier, dizziness, n/v/d/dysuria. Exam/Review of Systems Vital Signs Vitals Vital Signs Date Temp Pulse Resp B/P (MAP) Pulse Ox O2 O2 Flow FiO2 Time Delivery Rate 06/01/19 97.8 66 17 120/78 97 07:09 (92) 05/31/19 Room Air 14:00 Intake and Output 05/31/19 05/31/19 06/01/19 1515:00 23:00 07:00 IntakeIntake Total 300 ml 800 ml 440 ml OutputOutput Total 45 ml 125 ml 18 ml BalanceBalance 255 ml 675 ml 422 ml Exam Free Text/Dictation Constitutional: alert, oriented Psych: anxiety (min) Head: normocephalic, atraumatic Eyes: nl conjunctiva, nl lids, nl sclera ENMT: nl external ears & nose, nl lips & teeth, mucosa pink and moist Neck: supple, non-tender; No jvd Respiratory: normal air movement, congested cough Cardiovascular: regular rate and rhythm, nl pulses Gastrointestinal: soft, obese, nontender, no rebound/guarding/rigidity, jps serous Genitourinary - Female: nl external genitalia Musculoskeletal: nl extremities to inspection, nl gait and stance Extremities: normal pulses Neurological: nl mental status, nl speech, nl strength Skin: rash or lesions Lymph: nl lymph nodes Results Result Diagram: 06/01/19 0435 06/01/19 0435 ANTONIO TRACY NP Jun 01, 2019 11:09
--- NOTE | 2019-06-01 12:58 | PDOCDIS ---
Discharge Instructions DIAGNOSIS Discharge Diagnosis #Subacute appendicitis with perforation/peritonitis/pelvic abscess and pus throughout the abdomen #History of hyperlipidemia. #Obesity #Prediabetes #Hypokalemia CONDITION [id number] Patient Condition: [id number] Stable HOME CARE INSTRUCTIONS: [id number] Diet Instructions: [id number] Low Fat /Cholesterol ACTIVITY: [id number] Activity Restrictions: Dilhy4d Slowly Increase Activity Rest between Activity Avoid heavy lifting Do not Drive [id number] Bathing Restrictions: [id number] Tub Bath FOLLOW UP/APPOINTMENTS Follow-up Plan Follow up with Dr. Jeff Jackson in one week Office Address [id number] [facility] [address] [place] [id number] Office ROSAS JONES NP Jun 01, 2019 12:58
--- NOTE | 2019-06-01 13:05 | DS ---
Date/Time of Note Date/Time of Note DATE: 06/01/19 TIME: 13:01 Discharge Summary Admission/Discharge Info Admit Date/Time May 26, 2019 at 06:27 Discharge Date/Time Discharge Diagnosis #Subacute appendicitis with perforation/peritonitis/pelvic abscess and pus thr oughout the abdomen #History of hyperlipidemia. #Obesity #Prediabetes #Hypokalemia Patient Condition: Stable Hospital Course This is a 39-year-old female with history of hyperlipidemia with abdominal pain x2 days. She reports that her abdominal pain was in the epigastric area that went down to her lower abdomen. As such she went to the hospital for further evaluation. She did have abdominal imaging with CT scan that did show to have findings consistent with acute appendicitis. She was seen by general surgeon and placed on appropriate antibiotics. Patient was found with appendicitis with perforation/peritonitis/pelvic abscess and pus throughout the abdomen. She did have JVD drains placed. As patient mentioned she was placed on antibiotics with good response. She was also provided with appropriate analgesics. She was otherwise optimized medically. She was advised weight reduction for her obesity. We did monitor her electrolites and repleted them as needed. She was advised outpatient follow-up with surgeon and she was to be discharged home with RAHEEM drains in place with home health services for drain management. The plan of care was discussed with the patient and she verbalized understanding. On the day of discharge patient was in stable condition Discussed POC with Dr. Hinojosa [place] Med[facility] Active Scripts Hydrocodone Bit-Acetaminophen (Hydrocodone Bit-APAP) 5-325MG Tablet, 1 TAB PO Q4H PRN for MODERATE PAIN LEVEL 4-6, #30 TAB Prov:ROSAS JONES NP 06/01/19 Reported Medications Ibuprofen* (Ibuprofen*) 800 Mg Tab, 800 MG PO Q6H PRN for PAIN, TAB 05/26/19 Discontinued Reported Medications Vit No.124/Iron/FA ( Vitamin Tablet) 1 Each Tablet, 1 EACH PO DAILY, TAB 05/26/19 Vit-Iron Fumarate-FA ( Vitamin Tablet) 1 Each Tablet, 1 TAB PO DAILY, TAB 06/15/15 Discontinued Scripts Oxycodone Hcl/Acetaminophen (Percocet) 1 Tab Tab, 2 TAB PO Q4H PRN for PAIN LEVEL 6-10, #30 TAB 0 Refills Prov:JUANCARLOS WALKER MD 06/17/15 Metformin* (Glucophage* XR) 500 Mg Tabsr, 500 MG PO BID, #120 6 Refills Prov:JUANCARLOS WALKER MD 06/17/15 Follow-up Plan Follow up with Dr. Jeff Jackson in one week Office Address [id number] [facility] [address] [place] [address] Office Primary Care Provider Care Physician No Primary Time spent on discharge: > 30 minutes Pending Labs Laboratory Tests Test 06/01/19 04:35 White Blood Count 8.9 10^3/ul (4.8-10.8) Red Blood Count 3.95 10^6/ul (4.20-5.40) Hemoglobin 11.3 g/dl (12.0-16.0) Hematocrit 35.7 % (37.0-47.0) Mean Corpuscular Volume 90.4 fl (82.0-101.0) Mean Corpuscular Hemoglobin 28.6 pg (29.0-33.0) Mean Corpuscular Hemoglobin Concent 31.7 g/dl (32.0-37.0) Red Cell Distribution Width 12.8 % (11.5-14.5) Platelet Count 217 10^3/UL (140-415) Mean Platelet Volume 10.2 fl (7.4-10.4) Immature Granulocytes % 3.600 % (0.001-0.429) Neutrophils % % (39.0-77.0) Segmented Neutrophils % (Manual) 59 % (39-77) Band Neutrophils % (Manual) 8 % (0-4) Lymphocytes % % (15.0-51.0) Lymphocytes % (Manual) 19 % (15-51) Reactive Lymphocytes % (Manual) 3 % (0-0) Monocytes % % (0.0-11.0) Monocytes % (Manual) 2 % (0-11) Eosinophils % % (0.0-7.0) Eosinophils % (Manual) 7 % (0-7) Basophils % % (0.0-2.0) Basophils % (Manual) 1 % (0-2) Myelocytes % (Manual) 1 % (0-0) Nucleated Red Blood Cells % 0.0 /100WBC (0.0-0.0) Immature Granulocytes # 0.320 10^3/ul (0.0-0.031) Neutrophils # 10^3/ul (1.6-7.5) Neutrophils # (Manual) 5.3 10^3/ul (1.6-7.5) Band Neutrophils # 0.7 10^3/ul (0.0-0.6) Lymphocytes (Manual) 1.6 10^3/ul (0.8-2.9) Lymphocytes # 10^3/ul (0.8-2.9) Reactive Lymphocytes # 0.2 10^3/ul (0.0-0.0) Monocytes # 10^3/ul (0.3-0.9) Monocytes # (Manual) 0.1 10^3/ul (0.3-0.9) Eosinophils # 10^3/ul (0.0-0.5) Basophils # 10^3/ul (0.0-0.1) Basophils # (Manual) 0.0 10^3/ul (0.0-0.0) Myelocytes # 0.0 10^3/ul (0.0-0.0) Nucleated Red Blood Cells # 10^3/ul (0.0-0.0) Platelet Estimate NORMAL Polychromasia 1+ (0-0) Hypochromasia 1+ (0-0) Anisocytosis 1+ (0-0) Microcytosis 1+ (0-0) Sodium Level 140 mmol/L (135-144) Potassium Level 4.0 mmol/L (3.5-5.1) Chloride Level 103 mmol/L (97-110) Carbon Dioxide Level 32 mmol/L (21-31) Anion Gap 5 (5-13) Blood Urea Nitrogen 6 mg/dl (7-20) Creatinine 0.55 mg/dl (0.44-1.00) Est Glomerular Filtrat Rate mL/min > 60 mL/min (>60) Glucose Level 113 mg/dl (70-220) Calcium Level 8.8 mg/dl (8.4-10.2) ROSAS JONES NP Jun 01, 2019 13:05
[2019-06-01 14:38] VITALS: BP 120/79; PULSE 69; RESP 17
== END 2019-06-01 19:45 | disposition home or self-care (01) | DRG 853 ==
LOC: E/R 22:02 → MS1 05-26 06:27
PROVIDERS: ADMIT Family Medicine; ATTEND Family Medicine
PROC: 0W9J4ZZ Drainage of Pelvic Cavity, Percutaneous Endoscopic Approach (ICD-10-PCS; 2019-05-26)
PROC: 0W9G4ZZ Drainage of Peritoneal Cavity, Percutaneous Endoscopic Approach (ICD-10-PCS; 2019-05-26)
PROC: 0DTJ4ZZ Resection of Appendix, Percutaneous Endoscopic Approach (ICD-10-PCS; principal; 2019-05-26 16:00)
DX: A41.9 Sepsis, unspecified organism (principal); K35.21 Acute appendicitis with generalized peritonitis, with abscess; E87.2 Acidosis; Z68.41 Body mass index [BMI] 40.0-44.9, adult; E66.01 Morbid (severe) obesity due to excess calories; E78.5 Hyperlipidemia, unspecified; E80.6 Other disorders of bilirubin metabolism; E87.6 Hypokalemia; K38.1 Appendicular concretions; K76.0 Fatty (change of) liver, not elsewhere classified; R73.03 Prediabetes
CPT/HCPCS: 36415; 74176; 80048; 80053; 80061; 81001; 83036; 83605; 83690; 83735; 84100; 84443; 84703; 85025; 85610; 85730; 87086; 88304; 93005; 96374; 96375; J0690; J0696; J1100; J1650; J2270; J2405; J2543; J3010; J3480; J7030; J7050; P9045

== ENCOUNTER 2019-06-26 12:20 | Emergency (ER) | payer MEDICAID ==
[~2019-06-26] VITALS: Wt 77.4 kg
[~2019-06-26 12:20] MED LIST changes: +CEPH-443 PO; +FAMO-96 PO; +HYDR-4011 PO; +IBUP-1542 PO; -METF500T3 PO; +ONDA4TAB14 PO; -PERCOCET PO; -PREN-93 PO; -PREN1TAB62 PO; +TRAM50TA2 PO
[2019-06-26] MEDS ORDERED: KETOROLAC 30 MG INJ IV STA (14:50)
[2019-06-26] MEDS ORDERED: ONDANSETRON 4 MG INJ IV STA (14:50)
[2019-06-26] MEDS ORDERED: FAMOTIDINE 20 MG TAB PO STA (14:50)
[2019-06-26] MEDS ORDERED: SOD CHLORIDE 0.9% 100 ML ONE (16:03)
[2019-06-26] MEDS ORDERED: IOHEXOL 300MG/ML 150 ML BTL ONE (16:03)
[2019-06-26 19:36] VITALS: BP 107/61; PULSE 57; RESP 18
== END 2019-06-26 19:50 | disposition home or self-care (01) ==
LOC: FTE 12:20
DX: G89.18 Other acute postprocedural pain (principal); N39.0 Urinary tract infection, site not specified; D35.00 Benign neoplasm of unspecified adrenal gland
CPT/HCPCS: 74177; 76830; 76856; 80053; 81001; 81025; 83690; 85025; 96374; J2405; Q9967; Z7502; Z7610; J1885